=== PATIENT | female | born 1960 | race African-American/Black ===

== ENCOUNTER 2017-04-27 22:30 | Inpatient (IN) | payer MEDICAID, SELFPAY ==
[2017-04-27 22:57] LABS: #Basophils 0.1 thou/uL (0.0-0.2); #Eosinphils 0.2 thou/uL (0.0-0.7); #Lymphocytes 2.6 thou/uL (1.20-3.40); #Neutrophils 8.3 thou/uL (1.40-6.50); %Eosinophils 1.6 % (0.0-10.0); %Lymphocytes 21.1 % (21.0-51.0); %Monocytes 8.4 % (0.0-10.0); %Neutrophils 67.9 % (42.0-75.0); Hemoglobin 11.8 g/dL (12.0-16.0); Mean Corpuscular HGB CONC 31.9 g/dL (32.0-36.0); Mean Corpuscular Hemoglobin 29.3 pg (27.0-31.0); Mean Corpuscular Volume 91.8 fl (81.0-99.0); Mean Platelet Volume 9.2 fL (7.4-10.4); Platelet Count 360 thou/uL (130-400); RBC Distribution Width 12.1 % (11.5-14.5); Red Blood Cell (RBC) Count 4.05 mill/uL (4.20-5.40); White Blood Cell (WBC) Count 12.2 thou/uL (4.8-10.8)
--- NOTE | 2017-04-27 23:04 | RAD ---
PORTABLE AP CHEST X-RAY 04/27/17 HISTORY: Shortness of breath for two days. COMPARISON: None available. FINDINGS: There is limited evaluation of the lung bases due to the underpenetrated technique of the study. Left lung base is mostly obscured due to enlarged cardiac silhouette and underpenetrated technique. Lungs are otherwise clear. The cardiac silhouette does appear mildly enlarged and magnified by projection. Pulmonary vasculature is at the upper limits of normal. Osseous structures are intact. IMPRESSION: Suboptimal evaluation of the left lung base due to enlarged cardiac silhouette and underpenetrated te chnique. Atelectasis, infiltrate or pleural effusion at the left lung base cannot be excluded. POS: [facility]
[2017-04-27 23:17] LABS: ALT (SGPT) 93 U/L (8-55); AST (SGOT) 63 U/L (5-34); Albumin 3.3 g/dL (3.5-5.0); Alkaline Phosphatase 94 U/L (40-150); Anion Gap 17 mmol/L (10-20); BUN (Urea Nitrogen) 37 mg/dL (9.8-20.1); Bilirubin, Total 0.3 mg/dL (0.2-1.2); Calc. Creatinine Clearance 0 mL/min (70-130); Carbon Dioxide 22 mmol/L (22-29); Chloride 99 mmol/L (98-107); Estimated GFR-MDRD 27; Globulin 3.7 g/dL (2.4-3.5); Glucose 431 mg/dL (70-105); Potassium 4.2 mmol/L (3.5-5.1); Sodium 134 mmol/L (136-145)
[2017-04-27 23:21] LABS: CKMB 3.3 ng/mL (0-6.6); Troponin I 0.264 ng/mL (< 0.028)
[2017-04-27] MEDS ORDERED: Nitroglycerin 0.4 MG TAB (25 Tab Bottle) ONE (23:29)
[2017-04-27] MEDS ORDERED: Nitroglycerin 2% Ointment 1 INCH/1 GM Packet ONE (23:29)
[2017-04-27] MEDS ORDERED: Furosemide 40 MG/4 ML VIAL ONE (23:29)
[2017-04-28] MEDS ORDERED: hydrALAZINE 20 MG/ML VIAL ONE (00:24)
[2017-04-28 05:13] VITALS: BMI 50.2
[2017-04-28] MEDS ORDERED: Ondansetron HCl/PF 4 MG/2 ML Vial IVP PRN (05:26)
[2017-04-28] MEDS ORDERED: Ondansetron ODT 4 MG TAB SL PRN (05:26)
[2017-04-28] MEDS ORDERED: Acetaminophen 325 MG TAB PO PRN (05:26)
[2017-04-28] MEDS: Furosemide 40 MG/4 ML VIAL SLOW IVP SCH ×2 (06:48→12:02)
[2017-04-28] MEDS ORDERED: Dextrose 50% Abboject 50 ML SYRINGE IVP PRN (08:14)
[2017-04-28] MEDS ORDERED: Dextrose 5% in Water 1,000 ML IV PRN (08:14)
[2017-04-28] MEDS ORDERED: Losartan 25 MG TAB PO SCH (09:00)
[2017-04-28] MEDS ORDERED: glipiZIDE 10 MG TAB PO SCH (09:00)
--- NOTE | 2017-04-28 09:07 | RAD ---
2 VIEWS CHEST: Date: 04/28/17 COMPARISON: 04/27/17. HISTORY: CHF. FINDINGS: Two views of the chest show an enlarged but stable cardiomediastinal silhouette. There is no evidence of consolidation, mass, or pleural effusion. IMPRESSION: Cardiomegaly. POS: [facility]
[2017-04-28] MEDS: Aspirin 325 MG TAB PO SCH (09:13)
[2017-04-28] MEDS: Enoxaparin Sodium 40 MG/0.4 ML SYRINGE SC SCH (09:13)
[2017-04-28] MEDS: cloNIDine 0.1 MG TAB PO SCH ×3 (09:14→21:00)
[2017-04-28] MEDS: Insulin Detemir 100 UNITS/ML 10 UNITS in Pre-Filled Syringe 1 EACH SC SCH ×2 (09:15→20:59)
[2017-04-28 09:44] LABS: Hemoglobin A1c 12.4 % (4.0-6.0)
--- NOTE | 2017-04-28 10:49 | HP ---
DATE OF ADMISSION: 04/28/2017 HISTORY OF PRESENT ILLNESS: This is a 57-year-old black female with a history of congestive heart fa ilure, morbid obesity, diabetes who presents with chest pain. Patient approximately 1 week ago began developing low grade fever, headache and myalgias and arthralgias. She felt that she had the flu. Since then, she has had increasing shortness of breath. She has been having difficulty even walking short distances. Finally, last night, she became frustrated and presented to the emergency room. Up on evaluation, she was noted to be in congestive heart failure. Over the past year, she was last see n by myself in 06/2016. She lives between [place] and [place]. She is on medicate in [place] an d has been seen a physician there. She admits to a very poor diet. She states [place] has a very unhe althy foods compared to [place]. She did recently quit smoking 1 year ago. She has a 30-year tob acco history. She also states that [place] only has greasy unhealthy foods to eat here. PAST MEDICAL HISTORY: Hypertension, hyperlipidemia, diabetes, congestive heart failure in 2011. PAST SURGICAL HISTORY: Includes x1, cholecystectomy, right ulnar nerve surgery. FAMILY HISTORY: Father with Alzheimer's. Mother with manic depression, diabetes, hypertension. Sib lings with hypertension. Paternal grandfather negative. SOCIAL HISTORY: Patient has a half a pack per day tobacco history x30 years. She is presently apply ing for disability. She is on medicate in [place] and attempting to get on medicate in [place]. Roque lawson is presently unemployed. She has one son. MEDICATIONS: Glipizide 10 mg daily, metoprolol 100 at bedtime, losartan 100 q.a.m., Zoloft 100 daily . ALLERGIES: BACTRIM. REVIEW OF SYSTEMS: As above. PHYSICAL EXAMINATION: VITAL SIGNS: Upon admission, blood pressure was excessively high, temperature 98.1, pulse 81, respir ations 26, O2 sat 98 on 3 liters, blood pressure 174/92. HEENT: Clear. HEART: Regular rate and rhythm. LUNGS: Difficult to auscultate due to morbid obesity. ABDOMEN: Obese, soft, nontender. EXTREMITIES: With no appreciative edema. LABORATORY DATA AND X-RAY FINDINGS: Sodium 134, potassium 4.2, creatinine 2.24, glucose 431, 334. B BOX BENDER 1614. Troponin 0.264. Chest x-ray difficult to visualize due to obesity. EKG shows a sinus tach ycardia. ASSESSMENT: 1. Congestive heart failure exacerbation. 2. Non-ST elevation myocardial infarction. 3. Acute kidney failure on chronic kidney disease stage 4. 4. Diabetes. 5. Hypertension. 6. Hyperlipidemia. 7. Morbid obesity. 8. Tobacco abuse, quit one year ago, 30-year history. 9. Sedentary lifestyle. 10. Poor diet. 11. Noncompliance. PLAN: 1. Echo. 2. Chest x-ray, PA and lateral. 3. Consult Cardiology. 4. Dietary consult. 5. Accu-Chek. 6. Check hemoglobin A1c and TSH. 7. The patient, if she continues in this present lifestyle, her prognosis is very poor. She has a v jennifer poor diet. She is also sedentary. She states she is going down the path as her mother did. We will consult Cardiology. Patient needs a thorough cardiac evaluation. She is noncompliant and early sees her physician. I last saw her nearly 1 year ago. Most likely, she has coronary artery disease , cardiomyopathy, and kidney disease. We will require diuresis. I had a long discussion with the william perry as far as her diet, exercise and lifestyle. We will continue to follow.
[2017-04-28] MEDS: HumaLOG 300 UNITS/3 ML VIAL SC PRN (12:02)
--- NOTE | 2017-04-28 14:16 | ULT ---
RENAL SONOGRAM: HISTORY: Chronic renal insufficiency. FINDINGS: The right kidney is 10.7 cm in length and the left is 11.5 cm. There is mild dilatation of each binh l collecting system. No masses are evident. The urinary bladder is incompletely distended. IMPRESSION: Mild bilateral hydronephrosis, cause and significance are not apparent. The urinary bladder is decom pressed. POS: [facility]
--- NOTE | 2017-04-28 16:13 | CON ---
DATE OF CONSULTATION: 04/28/2017 NEPHROLOGY CONSULTATION REASON FOR CONSULTATION: Chronic kidney disease and elevated creatinine. HISTORY OF PRESENTING ILLNESS: This is a very pleasant 57-year-old female with a history of pre-ecla mpsia, history of proteinuria and history of congestive heart failure who presented to the hospital w ith chest pain. The patient at this time denies any nausea, vomiting or chest pain. The patient has no known proteinuria and has been on an MILENA inhibitor and an ARB. PAST MEDICAL HISTORY: Significant for hypertension, hyperlipidemia, diabetes mellitus, congestive he art failure, history of , cholecystectomy, right ulnar nerve, history of eclampsia or preecl ampsia. FAMILY HISTORY: Negative for ESRD. SOCIOECONOMIC HISTORY: No alcohol or drug use. HOME MEDICATIONS: List reviewed. HOSPITAL MEDICATIONS: Reviewed. ALLERGIES: Reviewed. The patient had a cough to MILENA INHIBITOR. REVIEW OF SYSTEMS: A 15-point review of systems was performed and was negative except for positives noted above. GENERAL: Weakness- HEAD: Headache- NECK: No swelling or lumps. NOSE: No epistaxis or discharge. EYES: No diplopia or pain. RESPIRATORY: Dyspnea- CARDIOVASCULAR: Chest pain- GASTROINTESTINAL: Nausea- /DISTANCE LEARNING COORDINATOR: Hematuria- MUSCULOSKELETAL: No joint pain. NEUROPSYCHIATIC SYSTEMS: No suicidal ideation. No ideation. SKIN: Denies any rash or ulcer. CONSTITUTIONAL: No fever or chills. PHYSICAL EXAMINATION: GENERAL: Patient is awake, alert. VITAL SIGNS: Afebrile, pulse 89, breathing at 16, blood pressure was 172/92. HEAD/NECK: Normocephalic. Atraumatic. EYES: EOMI. No deformity. EARS: Clear. No ulcers. NOSE: Intact. No lesions. MOUTH: Clear. No discharge. THROAT: Clear. No exudate. LUNGS: Clear. No crackles. CARDIAC: S1, S2. No rub. ABDOMEN: Benign. BS+. GENITALIA/RECTUM: Terrell absent. BACK/EXTREMITIES: Edema 0+ Ulcer- NEUROLOGICAL: Alert and motor intact. SKIN: Rash- Bruise- LYMPHATICS: Edema- Ulcer- ASSESSMENT AND PLAN: 1. Hypertension, start amlodipine 2.5 mg daily. 2. Anemia, stable. 3. Medications based on glomerular filtration rate are appropriate. I will follow the patient's cheryl al function closely. I have advised lifestyle modification including weight reduction.
--- NOTE | 2017-04-28 23:01 | CON ---
DATE OF CONSULTATION: 04/28/2017 REASON FOR CONSULTATION: Heart failure. HISTORY OF PRESENT ILLNESS: Ms. Martinez is a very pleasant 57-year-old -Spanish female, who comes to the hospital for shortness of breath. She has been told in the past that she has had conge stive heart failure, she does not know if she has been told that she had a weak heart or not. She co mes in for approximately 2 weeks of worsening shortness of breath with increasing lower extremity kellie ma. She was unable to lay flat on her back and she could only sleep if she would put several pillows on her back and she would have to sit up every now and then to breathe better. She decided to come in because of this and , and Cardiology is being consulted for this. She has taken most of her care up in [place], some of it here in [place], but she recently moved here some years ago and has not been seeing any physicians here in the area except for a primary care doctor. She tells me she q uit smoking a year ago. She had a [id number]-daff history of smoking. PAST MEDICAL HISTORY: 1. Hypertension. 2. Hyperlipidemia. 3. Type 2 diabetes. 4. Heart failure since 2011, unknown which type. PAST SURGICAL HISTORY: 1. x1. 2. Cholecystectomy. 3. Right ulnar nerve surgery. FAMILY HISTORY: Hypertension in family members. SOCIAL HISTORY: Half a pack a day tobacco use for 30 years. No alcohol or drugs. OUTPATIENT MEDICATIONS: Include; 1. Glipizide 10 mg a day. 2. Metoprolol 100 mg at bedtime. 3. Losartan 100 mg q.a.m. 4. Zoloft. ALLERGIES: BACTRIM. REVIEW OF SYSTEMS: A 12-point review of systems was done and is all negative unless stated in the hi story of present illness. PHYSICAL EXAMINATION: VITAL SIGNS: Temperature 97.7, pulse 83, respiratory rate 20, satting 98% on 2 liters, blood pressur e 139/103. GENERAL: Awake, alert, oriented x3, in no distress. HEENT: Normocephalic, atraumatic. NECK: Supple, with JVP up to about 14 cm of water. LUNGS: Have mild crackles at bilateral bases. CARDIOVASCULAR: S1, S2, no S3, S4. There is a soft grade 2/6 systolic murmur in the right upper cortes rnal border. Cannot appreciate PMI secondary to body habitus. ABDOMEN: Soft. Positive bowel sounds. EXTREMITIES: 1+ edema. SKIN: Warm and dry. LABORATORY DATA: Laboratory work was reviewed. White count of 12, hemoglobin 11, hematocrit of 37, platelet count of 260. Chemistry was also reviewed. Hemoglobin A1c was 12, BUN 37, creatinine 2.24, glucose was 431, troponin was indeterminate at 0.26. BNP was 1614, albumin of 3.3. ASSESSMENT: 1. Acute decompensated heart failure. Unknown if this is systolic or diastolic. 2. Morbid obesity. 3. Tobacco abuse, quit about a year ago. 4. Possible diagnosis of chronic obstructive pulmonary disease. She has never had PFTs so. 5. Acute kidney injury, most likely on chronic kidney disease. 6. Poorly controlled diabetes. PLAN: 1. Continue IV diuresis. She is already feeling better after Lasix has been given. We will get an echocardiogram to assess LV function and valvular structures and have a better idea of what type of h eart failure she may have. 2. Recommend request records from [place] to see what has been done, so we do not have to repeat several of the things that probably already have been done for this. 3. Further recommendations per results of echocardiogram. Thank you for letting us to participate in the care of your patient. We will follow.
[2017-04-29] MEDS: Furosemide 40 MG/4 ML VIAL SLOW IVP SCH ×2 (05:36→14:40)
[2017-04-29] MEDS: Aspirin 325 MG TAB PO SCH (08:15)
[2017-04-29] MEDS: cloNIDine 0.1 MG TAB PO SCH ×3 (08:15→20:31)
[2017-04-29] MEDS: Enoxaparin Sodium 40 MG/0.4 ML SYRINGE SC SCH (08:16)
[2017-04-29] MEDS: Insulin Detemir 100 UNITS/ML 10 UNITS in Pre-Filled Syringe 1 EACH SC SCH (08:18)
[2017-04-29] MEDS ORDERED: Amlodipine 5 MG TAB PO SCH (09:00)
[2017-04-29 10:04] LABS: Anion Gap 13 mmol/L (10-20); BUN (Urea Nitrogen) 45 mg/dL (9.8-20.1); Calc. Creatinine Clearance 65 mL/min (70-130); Calcium 8.6 mg/dL (7.8-10.44); Carbon Dioxide 27 mmol/L (22-29); Chloride 100 mmol/L (98-107); Estimated GFR-MDRD 29; Glucose 273 mg/dL (70-105); Potassium 4.1 mmol/L (3.5-5.1); Sodium 136 mmol/L (136-145)
[2017-04-29] MEDS: HumaLOG 300 UNITS/3 ML VIAL SC PRN (11:51)
[2017-04-29 12:01] LABS: Creatinine, Urine 89.45 mg/dL (47-110)
--- NOTE | 2017-04-29 15:10 | CT ---
CT OF THE ABDOMEN AND PELVIS WITHOUT CONTRAST: COMPARISON: None. History Left lower quadrant abdominal pain and nausea. TECHNIQUE: Multiple contiguous axial images were obtained in a CT of the abdomen and pelvis without contrast. C oronal reformats were performed. FINDINGS: The patient is status post cholecystectomy. There is a calcification in the superior pole of the lef t kidney which is nonobstructing measuring approximately 3 mm in size. No calcifications are seen al danni the course of the ureters or the urinary bladder. The liver, right kidney, adrenal glands, spleen, and pancreas are unremarkable, although evaluation i s limited on this noncontrast examination. The large and small bowel are unremarkable. The reproductive organs are unremarkable. No abdominal or pelvic lymphadenopathy are seen. Degenerative changes are seen in the spine. The visualized inferior thorax and abdominal wall soft t issues are unremarkable. IMPRESSION: 1. No evidence of acute intrabdominal/pelvic abnormality. 2. Nonobstructing left renal calcification. POS: [facility]
--- NOTE | 2017-04-29 17:09 | PRG ---
DATE OF SERVICE: 04/29/2017 SUBJECTIVE: This is a 57-year-old female being seen for acute kidney injury. The patient denies any nausea, vomiting or chest pain. OBJECTIVE: GENERAL: The patient is awake and alert. VITAL SIGNS: Afebrile, pulse 74, breathing at 16 and blood pressure 125/69. HEAD/NECK: Normocephalic. Atraumatic. EYES: EOMI. No deformity. EARS: Clear. No ulcers. NOSE: Intact. No lesions. MOUTH: Clear. No discharge. THROAT: Clear. No exudate. LUNGS: Clear. No crackles. CARDIAC: S1, S2. No rub. ABDOMEN: Benign. BS+. GENITALIA/RECTUM: Terrell absent. BACK/EXTREMITIES: Edema 0+. Ulcer-. NEUROLOGICAL: Alert and motor intact. SKIN: Rash-. Bruise-. LYMPHATICS: Edema-. Ulcer-. LABORATORY DATA: Showed creatinine is 2.1, GFR is 29. ASSESSMENT AND RECOMMENDATIONS: 1. Acute kidney injury with chronic kidney disease, most likely because of diabetic nephropathy. 2. Proteinuria. 3. Anemia, stable. 4. Medications based on glomerular filtration rate are appropriate. 5. Hypertension. We will quantitate proteinuria and consider restarting ARB at a low dose. 6. Bilateral hydronephrosis. I will consult Urology. Once again, thank you for allowing me to participate in the care of this patient. E.J. NOBLE HOSPITALCarolyne
--- NOTE | 2017-04-29 19:46 | PDOC.CTH ---
Cardiology Progress Note - Subjective She has diuresed well but still requiring O2 supplementation. - Objective Vital Signs Temp Pulse Pulse Pulse Resp BP BP 04/29/17 16:30 62 20 04/29/17 15:38 98.3 F 67 18 04/29/17 14:40 156/100 H 04/29/17 11:36 97.8 F 70 18 04/29/17 11:26 70 74 154/91 H 04/29/17 08:18 74 125/89 04/29/17 08:15 125/89 04/29/17 08:00 97.7 F 74 20 04/29/17 07:45 97.7 F 74 18 BP BP BP Pulse Ox Pulse Ox Pulse Ox 04/29/17 16:30 129/94 H 96 04/29/17 15:38 151/100 H 97 04/29/17 14:40 04/29/17 11:36 156/100 H 97 04/29/17 11:26 174/101 H 100 98 04/29/17 08:18 04/29/17 08:15 04/29/17 08:00 100 04/29/17 07:45 125/89 100 Weight 312 lb 6.4 oz 04/28/17 04/29/17 04/30/17 06:59 06:59 06:59 Output Total 500 1000 Balance -500 -1000 - Physical Examination General/Neuro: alert & oriented x3, NAD Neck: no JVD present Lungs: unlabored respirations, other: (Mild crackles at bases. ) Heart: RRR Abdomen: NT/ND Extremities: + edema B (1+) - Telemetry Telemetry Rhythm: NSR - Labs Result Diagrams: 04/27/17 22:47 04/29/17 05:01 Troponin/CKMB CK-MB (CK-2) 3.3 ng/mL (0-6.6) 04/27/17 22:47 Troponin I 0.264 ng/mL (< 0.028) H 04/27/17 22:47 - Assessment/Plan 1. Acute systolic heart failure 2. Moderately reduced LV function EF at 40-45% 3. HTN 4. Morbid obesity 5. CKD stage 4 PLAN: - Continue IV diuresis for now probably 2 more days. - Once closer to euvolemic she can be discharged home. - Request records from [place] as full work up of all this has been done already.
[2017-04-29] MEDS ORDERED: Insulin Detemir 100 UNITS/ML 20 UNITS in Pre-Filled Syringe SC SCH (21:00)
--- NOTE | 2017-04-29 21:11 | CON ---
DATE OF CONSULTATION: 04/29/2017 CONSULTATION REQUESTED FOR: Hydronephrosis. HISTORY OF PRESENT ILLNESS: The patient is a 57-year-old female who is morbidly obese and was admitted for CHF exacerbation after admittedly unhealthy lifestyle. An ultrasound was performed given her renal insufficiency and there was concern for hydronephrosis and I was consulted. Normally, the patient has frequency every 30 minutes to 2 hours and significant nocturia which she reports almost every 30 minutes. She has some leakage when she laughs, coughs and sneezes and wears a pad just in case she goes out or travels but normally does not have significant leakage enough to wear a pad on a daily basis. She has no gross hematuria, or prior UTIs. PAST MEDICAL HISTORY: Significant for hypertension, high cholesterol, diabetes , CHF. PAST SURGICAL HISTORY: Includes cholecystectomy and right ulnar nerve transposition. PAST BREAKFAST HOSTESS HISTORY: One . She did have eclampsia during her . MEDICATIONS: Glipizide, metoprolol, losartan, and Zoloft. REVIEW OF SYSTEMS: Reveals some shortness of breath which is greatly improved. No chest pain. No nausea or vomiting, some chills, but no fever, questionable constipation, no diarrhea. No nausea or vomiting. She is starting to exercise or trying to be more healthy with that, but has not had a significant amount of energy in the last month so it is not. She does have a history of anemia and is taking iron, but this seems to have improved. Mammogram was normal as well as a Pap smear last year. Colonoscopy from last year was clear, although she had prior polyps now for 3 years. SOCIAL HISTORY: She has a [id number] history and quit last year. She does not drink or use other drugs. FAMILY HISTORY: Significant for mom having depression and diabetes, but she is otherwise alive, and dad has Alzheimer's and is living as well. No cancers. PHYSICAL EXAMINATION: VITAL SIGNS: She is alert and oriented in the bed. Appropriate and pleasant. T-max 97.8, blood pressure 156/100, 97% on room air saturating and 18 respiratory rate with a heart rate of 70. Her urine output is listed as 12. GENERAL: She is morbidly obese. It is difficult to assess for JVD, but she has no scleral icterus. CARDIOVASCULAR: Heart sounds and lung sounds are difficult, but relatively regular without any obvious murmurs or gallops or rubs. LUNGS: Clear to auscultation as best I can tell. ABDOMEN: Soft and nontender. GENITOURINARY: No CVA tenderness. EXTREMITIES: No significant lower extremity edema. LABORATORY DATA: Reveal a normal CBC, BUN and creatinine of 45 and 2.12. It had previously been 2.24, it was 1.6 back in 08/2015. Urinalysis is not obtained yet. Renal ultrasound from 04/28/2017 revealed mild bilateral hydro left. ARY (04/29/17) left is greater than right renal pelvic dilation tjhat could be related to extrarenal pelvise. Hydronephrosis is questionable so me, so I ordered a CT scan. After examining and speaking with the patient, she just recently returned from the CT scan, so I was able to review this and then return to her and give the report. CT (04/29/17) no hydro/masses, 6 x 2 mm left upper pole stone which completely incidental without any sort of hydronephrosis on the left or the right nor hydroureter or other concerning stone. She had normal bladder with phleboliths noted. I cannot tell about the stone on battery recharger image. ASSESSMENT AND PLAN: we have a 57-year-old female with no concern for hydronephrosis and incidental kidney stone. We had a long discussion including Kegel and stone prevention and hydration and dietary changes. Given the incidental stone, she should follow up in the outpatient setting to further discuss prevention, but there is nothing to be done acutely at this time from a standpoint. Thank you for letting me take part in her care. JULIA
[2017-04-30 05:49] LABS: Anion Gap 13 mmol/L (10-20); BUN (Urea Nitrogen) 49 mg/dL (9.8-20.1); Calc. Creatinine Clearance 58 mL/min (70-130); Calcium 8.9 mg/dL (7.8-10.44); Carbon Dioxide 29 mmol/L (22-29); Chloride 100 mmol/L (98-107); Estimated GFR-MDRD 26; Glucose 306 mg/dL (70-105); Potassium 3.9 mmol/L (3.5-5.1); Sodium 138 mmol/L (136-145)
[2017-04-30] MEDS: Furosemide 40 MG/4 ML VIAL SLOW IVP SCH ×2 (06:28→13:15)
[2017-04-30] MEDS: cloNIDine 0.1 MG TAB PO SCH ×3 (08:13→20:29)
[2017-04-30] MEDS: Amlodipine 5 MG TAB PO SCH (08:14)
[2017-04-30] MEDS: Aspirin 325 MG TAB PO SCH (08:14)
[2017-04-30] MEDS: Enoxaparin Sodium 40 MG/0.4 ML SYRINGE SC SCH (08:15)
[2017-04-30] MEDS: Polyethylene Glycol 3350 17 GM Packet PO SCH (08:15)
[2017-04-30 08:31] LABS: Bilirubin Negative (Negative); Blood, Urine Trace (Negative); Clarity CLOUDY (Clear); Glucose, Urine (Dipstick) 100 mg/dL (Negative); Leukocyte Small (Negative); Nitrite Positive (Negative); Protein, Urine (Dipstick) 300 mg/dL (Neg-Trace); Specific Gravity, Urine 1.016 (1.002-1.036); Urobilinogen 0.2 mg/dL (0.2-1.0)
[2017-04-30 08:32] LABS: Bacteria/HPF 4+ HPF (None Seen); Hyaline Casts/LPF 0-3 HYALINE CAST LPF (0-3 Hyaline); RBC/HPF 0-3 HPF (0-3); Squamous Epithelial 0-3 HPF (0-3); WBC/HPF 21-50 HPF (0-3)
[2017-04-30] MEDS ORDERED: Insulin Detemir 100 UNITS/ML 10 UNITS in Pre-Filled Syringe SC SCH (09:00)
[2017-04-30] MEDS: HumaLOG 300 UNITS/3 ML VIAL SC PRN ×2 (11:35→17:03)
[2017-04-30 13:10] LABS: Anion Gap 16 mmol/L (10-20); BUN (Urea Nitrogen) 49 mg/dL (9.8-20.1); Calc. Creatinine Clearance 56 mL/min (70-130); Calcium 8.7 mg/dL (7.8-10.44); Carbon Dioxide 26 mmol/L (22-29); Chloride 98 mmol/L (98-107); Estimated GFR-MDRD 24; Glucose 333 mg/dL (70-105); Potassium 3.9 mmol/L (3.5-5.1); Sodium 136 mmol/L (136-145)
--- NOTE | 2017-04-30 15:25 | PRG ---
DATE OF SERVICE: 04/30/2017 SUBJECTIVE: This is a 57-year-old female being seen for acute kidney injury. The patient denies any nausea, vomiting or chest pain. PHYSICAL EXAMINATION: GENERAL: Patient is awake, alert. VITAL SIGNS: Afebrile, pulse 68, breathing at 16, blood pressure 151/92. HEAD/NECK: Normocephalic. Atraumatic. EYES: EOMI. No deformity. EARS: Clear. No ulcers. NOSE: Intact. No lesions. MOUTH: Clear. No discharge. THROAT: Clear. No exudate. LUNGS: Clear. No crackles. CARDIAC: S1, S2. No rub. ABDOMEN: Benign. BS+. GENITALIA/RECTUM: Terrell absent. BACK/EXTREMITIES: Edema 0+ Ulcer- NEUROLOGICAL: Alert and motor intact. SKIN: Rash- Bruise- LYMPHATICS: Edema- Ulcer- LABORATORY DATA: Show creatinine 2.3. Urine showed 3 grams ASSESSMENT AND RECOMMENDATIONS: 1. Chronic kidney disease stage 4 due to hypertension and diabetic nephropathy. Serum protein elect rophoresis and urine protein electrophoresis are pending. No indication for dialysis. 2. Hypertension, stable. 3. Anemia, stable. 4. Medications based on glomerular filtration rate are appropriate.
--- NOTE | 2017-04-30 19:09 | PDOC.CTH ---
Cardiology Progress Note - Subjective She is doing better every day. Still requiring O2 supplementation. - Objective Vital Signs Temp Pulse Pulse Pulse Resp BP BP 04/30/17 17:27 94 04/30/17 15:44 98.1 F 106 H 18 04/30/17 14:19 151/95 H 04/30/17 11:56 97.4 F L 66 18 04/30/17 10:50 103 H 50 L 168/101 H 04/30/17 09:24 97.8 F 68 18 04/30/17 08:14 68 151/92 H 04/30/17 08:13 151/92 H 04/30/17 07:48 97.8 F 68 18 BP BP Pulse Ox Pulse Ox Pulse Ox 04/30/17 17:27 04/30/17 15:44 130/91 H 95 04/30/17 14:19 04/30/17 11:56 142/97 H 98 04/30/17 10:50 147/111 H 99 98 04/30/17 09:24 97 04/30/17 08:14 04/30/17 08:13 04/30/17 07:48 151/92 H 97 Weight 316 lb 8 oz 04/29/17 04/30/17 05/01/17 06:59 06:59 06:59 Intake Total 740 Output Total 1000 750 Balance -1000 -10 - Physical Examination General/Neuro: alert & oriented x3, NAD Neck: no JVD present Lungs: unlabored respirations Heart: RRR Abdomen: NT/ND Extremities: + edema B (trace) - Telemetry Telemetry Rhythm: NSR - Labs Result Diagrams: 04/27/17 22:47 04/30/17 12:38 Troponin/CKMB CK-MB (CK-2) 3.3 ng/mL (0-6.6) 04/27/17 22:47 Troponin I 0.264 ng/mL (< 0.028) H 04/27/17 22:47 - Assessment/Plan 1. Acute systolic heart failure 2. Moderately reduced LV function EF at 40-45% 3. HTN 4. Morbid obesity 5. CKD stage 4 PLAN: - Continue IV diuresis today. May switch to PO tomorrow. - Once closer to euvolemic she can be discharged home.
[2017-04-30] MEDS: Cipro 250 MG TAB PO SCH (20:31)
[2017-04-30] MEDS ORDERED: Insulin Detemir 100 UNITS/ML 25 UNITS in Pre-Filled Syringe SC SCH (21:00)
[2017-05-01 05:15] LABS: Anion Gap 16 mmol/L (10-20); BUN (Urea Nitrogen) 52 mg/dL (9.8-20.1); Calc. Creatinine Clearance 59 mL/min (70-130); Calcium 8.7 mg/dL (7.8-10.44); Carbon Dioxide 25 mmol/L (22-29); Chloride 101 mmol/L (98-107); Estimated GFR-MDRD 26; Glucose 272 mg/dL (70-105); Potassium 3.9 mmol/L (3.5-5.1); Sodium 138 mmol/L (136-145)
[2017-05-01] MEDS: Cipro 250 MG TAB PO SCH (05:22)
[2017-05-01] MEDS: Furosemide 40 MG/4 ML VIAL SLOW IVP SCH ×2 (05:22→14:34)
[2017-05-01] MEDS: HumaLOG 300 UNITS/3 ML VIAL SC PRN ×2 (05:35→11:02)
--- NOTE | 2017-05-01 07:47 | PRG ---
DATE OF SERVICE: 05/01/2017 SUBJECTIVE: The patient is breathing easier, but still requires oxygen therapy. No complaints of ch est pain or shortness of breath. OBJECTIVE: VITAL SIGNS: Temperature 97.4, pulse 65, respirations 18, pulse ox 97 on 1 liter, blood pressure 162 /92. HEART: Regular rate and rhythm. LUNGS: Clear. ABDOMEN: Soft. EXTREMITIES: With no edema. LABORATORY: Urinary tract infection, Escherichia coli resistant to Cipro. Creatinine 2.3, BUN 52, G FR 26, blood sugar 288, 272, 308. BNP 1569. ASSESSMENT: 1. Acute on chronic systolic heart failure. 2. Acute kidney injury on chronic kidney disease stage 4. 3. Diabetes. 4. Hypertension. 5. Hyperlipidemia. 6. Morbid obesity. 7. Tobacco history, 30-year history, quit one year ago. 8. Sedentary lifestyle 9. Poor diet. 10. Noncompliance. PLAN: 1. Continue to follow electrolytes. 2. Change Cipro to Cephalexin. 3. Increase Levemir to 30 b.i.d. 4. Consider adding hydralazine to the antihypertensives if okay with Cardiology. 5. Trying to explain the patient's medical issues. It is difficult for her to comprehend the signif icance of her poor diet, sedentary lifestyle, medication compliance and importance of following up at the office. The patient's judgment is impaired. She states that her doctors in [place] just sim ply make it difficult for her to be seen. However, she for no reason stopped all her medications, es pecially her Lasix because she thought it was harming her kidneys. However, her heart obviously deco mpensates. We will continue to follow and hopefully help her to understand what needs to be done.
[2017-05-01] MEDS: Aspirin 325 MG TAB PO SCH (08:52)
[2017-05-01] MEDS: Amlodipine 5 MG TAB PO SCH (08:52)
[2017-05-01] MEDS: ALPRAZolam 0.5 MG TAB PO PRN (08:53)
[2017-05-01] MEDS: cloNIDine 0.1 MG TAB PO SCH ×3 (08:53→21:32)
[2017-05-01] MEDS: Enoxaparin Sodium 40 MG/0.4 ML SYRINGE SC SCH (08:54)
[2017-05-01] MEDS: Polyethylene Glycol 3350 17 GM Packet PO SCH (08:55)
[2017-05-01] MEDS: Insulin Detemir 100 UNITS/ML 30 UNITS in Pre-Filled Syringe 1 EACH SC SCH ×2 (09:08→21:41)
[2017-05-01] MEDS: cefTRIAXone\\ROCEPHIN 2 GM in Sodium Chloride 0.9% 100 ML IVPB SCH (11:00)
[2017-05-01] MEDS ORDERED: Cephalexin 250 MG CAP PO SCH (14:00)
[2017-05-01 15:19] LABS: A/G Ratio 0.8 (0.7-1.7); Albumin 2.7 g/dL (2.9-4.4); Alpha 1 0.3 g/dL (0.0-0.4); Alpha 2 1.1 g/dL (0.4-1.0); Beta 1.2 g/dL (0.7-1.3); Gamma 0.9 g/dL (0.4-1.8); Globulin, Total 3.5 g/dL (2.2-3.9); M-Spike Not Observed g/dL (Not Observed)
--- NOTE | 2017-05-01 17:03 | PDOC.CTH ---
Cardiology Progress Note - Subjective She continues to require oxygen. She has diuressed but IO are difficult to quantify. She is on 2L NC at 96%, I took her off and on RA she goes down to 93% but when she stood up to go to the bathroom she was much more short winded and her O2 sats decreased to 86%. - Objective Vital Signs Temp Pulse Resp BP BP Pulse Ox 05/01/17 15:45 97.5 F L 60 18 158/107 H 97 05/01/17 14:35 167/103 H 05/01/17 12:00 98.2 F 62 20 174/112 H 95 05/01/17 08:53 169/104 H 05/01/17 08:52 60 169/104 H 05/01/17 08:00 97.8 F 60 18 169/104 H 94 L 05/01/17 07:40 97.4 F L 65 18 97 05/01/17 05:11 97.4 F L 65 18 162/92 H 97 Weight 319 lb 04/30/17 05/01/17 05/02/17 06:59 06:59 06:59 Intake Total 740 Output Total 750 Balance -10 - Physical Examination General/Neuro: alert & oriented x3, NAD Neck: no JVD present Lungs: unlabored respirations, other: (reduced breath sounds bilat. ) Heart: RRR Abdomen: NT/ND Extremities: other: (no edema.) - Telemetry Telemetry Rhythm: NSR - Labs Result Diagrams: 04/27/17 22:47 05/01/17 04:42 Troponin/CKMB CK-MB (CK-2) 3.3 ng/mL (0-6.6) 04/27/17 22:47 Troponin I 0.264 ng/mL (< 0.028) H 04/27/17 22:47 - Assessment/Plan 1. Acute systolic heart failure 2. Moderately reduced LV function EF at 40-45% 3. HTN 4. Morbid obesity 5. CKD stage 4 6. Chronic hypoxic respiratory insufficiency. I suspect a lot of her issues are from her weight and her severe СВЕТЛАНА. PLAN: - Will switch to PO lasix. - She seems euvolemic today. - She will need home O2 most likely. - BP still not well controlled. Will add hydralazine 25 mg TID and will increase amlodipine to 10 mg daily. - No ACEI or ARB due to renal function.
[2017-05-01] MEDS ORDERED: Furosemide 100 MG/10 ML VIAL SLOW IVP SCH (17:15)
--- NOTE | 2017-05-01 18:45 | PRG ---
DATE OF SERVICE: 05/01/2017 SUBJECTIVE: Patient was seen and examined at bedside and overnight events noted. Patient denies any shortness of breath or chest pain or palpitation. No history of nausea or vomiting or diarrhea or f ever or chills or cramps. OBJECTIVE: GENERAL: This is an morbidly obese female in no apparent distress. VITAL SIGNS: Temperature 97.5, pulse 60, respiratory rate 18 and blood pressure 158/107(). HEENT: Atraumatic and normocephalic. Oral mucosa is moist. NECK: Supple. CARDIOVASCULAR: S1 and S2 heard. Rate and rhythm regular. RESPIRATORY: Clear to auscultation. GASTROINTESTINAL: Abdomen is soft. MUSCULOSKELETAL: No tenderness. No edema. DERMATOLOGIC: No skin rash. NEUROLOGIC: Alert, awake and oriented x3. No focal neurologic deficits. Moving all the extremities . PSYCHIATRIC: Mood and affect normal. LABORATORY DATA: Potassium is 3.9, BUN is 52 and creatinine is 2.3. ASSESSMENT AND PLAN: 1. Acute kidney injury on chronic kidney disease stage 4. Renal function is stable. 2. Anemia proteinuria. 3. Hypertension. Overall, renal function is stable. We will follow.
[2017-05-01] MEDS: hydrALAZINE 25 MG TAB PO SCH (21:32)
[2017-05-02 05:23] LABS: Anion Gap 16 mmol/L (10-20); BUN (Urea Nitrogen) 47 mg/dL (9.8-20.1); Calc. Creatinine Clearance 68 mL/min (70-130); Calcium 8.9 mg/dL (7.8-10.44); Carbon Dioxide 27 mmol/L (22-29); Chloride 100 mmol/L (98-107); Estimated GFR-MDRD 30; Glucose 130 mg/dL (70-105); Potassium 3.5 mmol/L (3.5-5.1); Sodium 139 mmol/L (136-145)
--- NOTE | 2017-05-02 07:50 | PRG ---
DATE OF SERVICE: 05/02/2017 SUBJECTIVE: The patient is feeling much better today. However, I feel the patient is drinking exces sive water. She states she drinks only about 2 containers of water a day. However, she continues to gain weight. OBJECTIVE: VITAL SIGNS: Temperature 97.6, pulse 83, respirations 24, pulse ox 95 on 1 liter, blood pressure 151 /81. HEART: Regular rate and rhythm. LUNGS: Clear. ABDOMEN: Soft. LABORATORY: Sodium 139, potassium 3.5, creatinine 2.07, blood sugar 130, 125. BNP 1719. ASSESSMENT: 1. Acute on chronic systolic heart failure. 2. Acute kidney injury on chronic kidney disease stage 4. 3. Diabetes. 4. Hypertension. 5. Hyperlipidemia. 6. Morbid obesity. 7. Tobacco history, 30-year history, quit 1 year ago. 8. Sedentary lifestyle. 9. Poor diet. 10. Noncompliance. PLAN: 1. Continue to follow electrolytes. 2. May have to decrease insulin if blood sugars drop further. 3. I feel patient is drinking excessive water. Will fluid restrict to 1000 mL per day. The patient continues to gain weight. I think if she diureses further, I think her blood pressure will come lidia n further. Her kidney function has improved dramatically and this is most likely due to excessive wa ter intake. 4. We will continue to follow. 5. We will recheck CBC, BMP, and chest x-ray in the a.m.
[2017-05-02] MEDS: Enoxaparin Sodium 40 MG/0.4 ML SYRINGE SC SCH (09:12)
[2017-05-02] MEDS: Aspirin 325 MG TAB PO SCH (09:12)
[2017-05-02] MEDS: cloNIDine 0.1 MG TAB PO SCH ×3 (09:12→21:55)
[2017-05-02] MEDS: Furosemide 40 MG TAB PO SCH ×2 (09:12→14:24)
[2017-05-02] MEDS: hydrALAZINE 25 MG TAB PO SCH ×3 (09:13→21:56)
[2017-05-02] MEDS: Polyethylene Glycol 3350 17 GM Packet PO SCH (09:13)
[2017-05-02] MEDS: Insulin Detemir 100 UNITS/ML 30 UNITS in Pre-Filled Syringe 1 EACH SC SCH ×2 (09:13→22:01)
[2017-05-02] MEDS: Amlodipine 10 MG TAB PO SCH (09:13)
--- NOTE | 2017-05-02 09:51 | RAD ---
CHEST TWO VIEWS: Date: 05-02-17 Comparison: 04-28-17 History: Congestive heart failure. FINDINGS: Heart is enlarged, a stable finding. No pneumothorax or pleural fluid. No lobar consolidation or alve olar edema. Clips in the upper abdomen suggest prior cholecystectomy. IMPRESSION: Enlarged cardiac silhouette with no focal consolidation or alveolar edema. POS: [facility]
[2017-05-02] MEDS: cefTRIAXone\\ROCEPHIN 2 GM in Sodium Chloride 0.9% 100 ML IVPB SCH (11:39)
[2017-05-02] MEDS: HumaLOG 300 UNITS/3 ML VIAL SC PRN (11:40)
--- NOTE | 2017-05-02 20:27 | PRG ---
DATE OF SERVICE: 05/02/2017 SUBJECTIVE: Patient was seen and examined at bedside and overnight events noted. Patient denies any shortness of breath or chest pain or palpitation. No history of nausea or vomitin g or diarrhea or fever or chills or cramps. OBJECTIVE: GENERAL: Obese female, in no apparent distress. VITAL SIGNS: Temperature 98.2, pulse 58, respiratory rate 20, blood pressure 137/67. HEENT: Atraumatic, normocephalic. Oral mucosa is moist NECK: Supple. CARDIOVASCULAR: S1 and S2 heard. Rate and rhythm regular. RESPIRATORY: Clear to auscultation. GASTROINTESTINAL: Abdomen is soft. MUSCULOSKELETAL: No tenderness. No edema. DERMATOLOGIC: No skin rash. NEUROLOGIC: Alert and awake and oriented X3, No focal neurologic deficits. Moving all the extremitie s. PSYCHIATRIC: Mood and affect normal. LABORATORY DATA: Potassium is 3.5, BUN is 47, creatinine is 2.07. ASSESSMENT AND PLAN: 1. Acute kidney injury on chronic kidney disease stage 4, stable. 2. Anemia. 3. Proteinuria. 4. Hypertension. 5. Obesity. Renal function is stable. We will follow.
[2017-05-03] MEDS: ALPRAZolam 0.5 MG TAB PO PRN ×2 (04:02→21:53)
[2017-05-03 05:57] LABS: #Basophils 0.1 thou/uL (0.0-0.2); #Eosinphils 0.2 thou/uL (0.0-0.7); #Lymphocytes 2.1 thou/uL (1.20-3.40); #Monocytes 0.9 thou/uL (0.11-0.59); #Neutrophils 5.3 thou/uL (1.40-6.50); %Basophils 0.7 % (0.0-1.0); %Eosinophils 2.4 % (0.0-10.0); %Lymphocytes 24.2 % (21.0-51.0); %Monocytes 10.2 % (0.0-10.0); %Neutrophils 62.5 % (42.0-75.0); Mean Corpuscular HGB CONC 31.2 g/dL (32.0-36.0); Mean Corpuscular Hemoglobin 28.9 pg (27.0-31.0); Mean Corpuscular Volume 92.5 fl (81.0-99.0); Mean Platelet Volume 9.1 fL (7.4-10.4); Platelet Count 341 thou/uL (130-400); RBC Distribution Width 12.6 % (11.5-14.5); Red Blood Cell (RBC) Count 3.82 mill/uL (4.20-5.40); White Blood Cell (WBC) Count 8.5 thou/uL (4.8-10.8)
--- NOTE | 2017-05-03 06:51 | PDOC.CTH ---
Cardiology Progress Note - Subjective Her breathing is unchanged. She is still c/o her chronic SOB. I/O still not well quantified. - Objective Vital Signs Temp Pulse Resp BP BP Pulse Ox 05/03/17 03:53 97.7 F 58 L 20 165/105 H 98 05/02/17 23:47 97.8 F 49 L 20 141/72 H 97 05/02/17 21:56 56 L 141/79 H 05/02/17 21:55 141/79 H 05/02/17 20:18 97.8 F 49 L 20 95 05/02/17 19:33 97.7 F 56 L 20 141/79 H 95 Weight 311 lb 05/01/17 05/02/17 05/03/17 06:59 06:59 06:59 Intake Total 740 730 Output Total 750 Balance -10 730 - Physical Examination General/Neuro: alert & oriented x3, NAD Neck: no JVD present Lungs: CTA, unlabored respirations Heart: RRR Abdomen: NT/ND - Telemetry Telemetry Rhythm: NSR - Labs Result Diagrams: 05/03/17 05:28 05/02/17 04:34 Troponin/CKMB CK-MB (CK-2) 3.3 ng/mL (0-6.6) 04/27/17 22:47 Troponin I 0.264 ng/mL (< 0.028) H 04/27/17 22:47 - Assessment/Plan 1. Acute systolic heart failure, improved. 2. Moderately reduced LV function EF at 40-45% 3. HTN 4. Morbid obesity 5. CKD stage 4 6. Chronic hypoxic respiratory insufficiency. I suspect a lot of her issues are from her weight and her severe СВЕТЛАНА. PLAN: - Continue PO Lasix. - Agree with fluid restriction. - BP still not well controlled. Will increase hydralazine to 50 mg TID. - No ACEI or ARB due to renal function. - Continue BB. - Will give one dose IV lasix today on top of PO dosing. - She should be ready to go home soon. She will need home O2 from her chronic respiratory insufficiency and severe СВЕТЛАНА. - Will need outpatient sleep study. - Home in the next 24 to 48 hrs.
[2017-05-03] MEDS ORDERED: Furosemide 40 MG TAB PO SCH (06:58)
[2017-05-03] MEDS ORDERED: Furosemide 40 MG/4 ML VIAL SLOW IVP SCH (07:00)
--- NOTE | 2017-05-03 07:10 | PRG ---
DATE OF SERVICE: 05/03/2017 at 7:00 a.m. SUBJECTIVE: The patient is feeling much better this morning. She is breathing easier. Her oxygen l evel is down to 0.5 liters per minute. OBJECTIVE: VITAL SIGNS: Blood pressure 141/72, 155/105. HEART: Regular rate and rhythm. LUNGS: Clear. ABDOMEN: Soft. EXTREMITIES: No edema. Weight is down 7 pounds from yesterday, possibly due to fluid restriction. LABORATORY: Labs are pending. Blood sugar 146 and 120. White count 8.5, H&H of 11 and 35. BNP pen ding. ASSESSMENT: 1. Acute on chronic systolic heart failure. 2. Acute kidney injury on chronic kidney disease stage 4. 3. Diabetes. 4. Hypertension. 5. Hyperlipidemia. 6. Morbid obesity. 7. Tobacco history, 30-year history, quit one year ago. 8. Sedentary lifestyle 9. Poor diet. 10. Noncompliance. PLAN: 1. Check electrolytes. 2. If the patient loses additional weight possibly could be off of oxygen by tomorrow. 3. Patient very close to discharge. Hopefully by tomorrow. Continue fluid restriction at 1000 mL p er day.
[2017-05-03] MEDS: hydrALAZINE 25 MG TAB PO SCH ×3 (09:13→21:52)
[2017-05-03] MEDS: Aspirin 325 MG TAB PO SCH (09:14)
[2017-05-03] MEDS: cloNIDine 0.1 MG TAB PO SCH ×3 (09:14→21:51)
[2017-05-03] MEDS: Amlodipine 10 MG TAB PO SCH (09:14)
[2017-05-03] MEDS: Furosemide 40 MG TAB PO SCH ×2 (09:14→15:15)
[2017-05-03] MEDS: Enoxaparin Sodium 40 MG/0.4 ML SYRINGE SC SCH (09:14)
[2017-05-03] MEDS: cefTRIAXone\\ROCEPHIN 2 GM in Sodium Chloride 0.9% 100 ML IVPB SCH (09:17)
[2017-05-03] MEDS: Insulin Detemir 100 UNITS/ML 30 UNITS in Pre-Filled Syringe 1 EACH SC SCH ×2 (09:17→21:54)
[2017-05-03] MEDS: Polyethylene Glycol 3350 17 GM Packet PO SCH (09:19)
--- NOTE | 2017-05-03 11:51 | PRG ---
DATE OF SERVICE: 05/03/2017 SUBJECTIVE: Patient was seen and examined at bedside and overnight events noted. Patient denies any shortness of breath or chest pain or palpitation. No history of nausea or vomitin g or diarrhea or fever or chills or cramps. OBJECTIVE: GENERAL: This is a morbidly obese female, in no apparent distress. VITAL SIGNS: Temperature 98.3, pulse 61, respiratory rate 20, blood pressure 169/96. HEENT: Atraumatic, normocephalic. NECK: Supple. CARDIOVASCULAR: S1 and S2 heard. Rate and rhythm regular. RESPIRATORY: Clear to auscultation. GASTROINTESTINAL: Abdomen is soft. MUSCULOSKELETAL: 1+ edema. DERMATOLOGIC: No skin rash. NEUROLOGIC: Alert and awake and oriented X3, No focal neurologic deficits. Moving all the extremitie s. PSYCHIATRIC: Mood and affect normal. LABORATORY DATA: No new labs done. ASSESSMENT AND PLAN: 1. Acute kidney injury on chronic kidney disease. Renal function is stable despite diuresis. Néstor nue diuresis as tolerated. 2. Hyperkalemia, mild, replace and monitor magnesium and potassium. 3. Proteinuria. 4. Hypertension. 5. Obesity. Plan is to monitor renal function. Check labs in the morning including magnesium and replace if need ed. M-spike is negative.
[2017-05-04 06:06] LABS: Anion Gap 16 mmol/L (10-20); BUN (Urea Nitrogen) 36 mg/dL (9.8-20.1); Calc. Creatinine Clearance 70 mL/min (70-130); Calcium 8.8 mg/dL (7.8-10.44); Carbon Dioxide 28 mmol/L (22-29); Chloride 101 mmol/L (98-107); Estimated GFR-MDRD 32; Glucose 142 mg/dL (70-105); Magnesium 2.1 mg/dL (1.6-2.6); Potassium 3.5 mmol/L (3.5-5.1); Sodium 141 mmol/L (136-145)
[2017-05-04] MEDS: Amlodipine 10 MG TAB PO SCH (09:14)
[2017-05-04] MEDS: Insulin Detemir 100 UNITS/ML 30 UNITS in Pre-Filled Syringe 1 EACH SC SCH (09:14)
[2017-05-04] MEDS: cloNIDine 0.1 MG TAB PO SCH ×2 (09:15→16:00)
[2017-05-04] MEDS: Furosemide 40 MG TAB PO SCH ×2 (09:15→16:01)
[2017-05-04] MEDS: hydrALAZINE 25 MG TAB PO SCH ×2 (09:15→16:00)
[2017-05-04] MEDS: Aspirin 325 MG TAB PO SCH (09:15)
[2017-05-04] MEDS: Enoxaparin Sodium 40 MG/0.4 ML SYRINGE SC SCH (09:16)
[2017-05-04] MEDS: cefTRIAXone\\ROCEPHIN 2 GM in Sodium Chloride 0.9% 100 ML IVPB SCH (09:17)
[2017-05-04] MEDS: Polyethylene Glycol 3350 17 GM Packet PO SCH (09:19)
--- NOTE | 2017-05-04 09:32 | DIS ---
DISCHARGE DIAGNOSES: 1. Acute on chronic systolic heart failure. 2. Acute kidney injury on chronic kidney disease stage 4. 3. Diabetes. 4. Hypertension. 5. Hyperlipidemia. 6. Morbid obesity. 7. Tobacco history, quit 1 year ago. 8. Sedentary lifestyle. 9. Poor diet. 10. Noncompliance. DISCHARGE MEDICATIONS: Levemir 15 b.i.d., metoprolol 100 at bedtime, sertraline 100 mg daily, Norvas c 10 p.o. at bedtime, clonidine 0.1 t.i.d., aspirin 325 daily, Lasix 40 b.i.d., hydralazine 50 p.o. t .i.d. FOLLOWUP: Follow up 1 week on Monday at 10:50 a.m. BRIEF HISTORY: This is a 57-year-old black female with a history of congestive heart failure, morbid obesity, diabetes who presented with chest pain. One week prior, she developed a low grade fever, h eadache, myalgias and arthralgias. She thought she had the flu. She has been experiencing increasin g shortness of breath and having difficulty walking even short distances. She became frustrated and presented to the emergency room where she was discovered to be in congestive heart failure. She rare ly sees a doctor. She last saw myself approximately 1 year ago in June 2016. She has a doctor in [facility] which she has not seen recently. She admits to a very poor diet and sedentary lifestyle. She did quit smoking 1 year ago. HOSPITAL COURSE: The patient was placed on IV Lasix. Abdominal and pelvic CTs were done which were found to be negative. She did have a recent echocardiogram on 04/28/2017 which revealed an ejection fraction of 40-45%, with 2/3 systolic dysfunction with a moderately dilated left atrium. Mild mitral regurg and mild tricuspid regurg was also noted. Dr. Marti was consulted as well as Dr. Root from [facility]. The patient slowly made progress. We had to fluid restrict her in order for her to diurese a ppropriately. The patient at this time has a good pulse ox on room air. She will be discharged to [facility] on Monday. She will also follow up with Dr. Root and Dr. Marti. Final white count 8.5, H&H of 11 and 35. The patient's creatinine has decreased from 2.24 to 1.96. Blood sugar 180, 142, 134, BUN 36, sodium 141, potassium 3.5. Chest x-ray on 05/02/2016 showed persi stent cardiomegaly without any pulmonary edema. The patient is well aware of the importance of weigh t loss, diet and compliance. I have tried emphasized to her the importance of taking her medicines r egularly. She also needs to see her physician on a regular basis. I am always available to her.
--- NOTE | 2017-05-04 12:03 | PRG ---
DATE OF SERVICE: 05/04/2017 SUBJECTIVE: Patient was seen and examined at bedside and overnight events noted. Patient denies any shortness of breath or chest pain or palpitation. No history of nausea or vomiting or diarrhea or f ever or chills or cramps. OBJECTIVE: GENERAL: This is an obese female in no apparent distress. VITAL SIGNS: Temperature 97.3, pulse 56, respiratory rate 24, blood pressure 136/73. HEENT: Atraumatic, normocephalic. Oral mucosa is moist. NECK: Supple. CARDIOVASCULAR: S1, S2 heard. Rate and rhythm regular. RESPIRATORY: Clear to auscultation. GASTROINTESTINAL: Abdomen is soft. MUSCULOSKELETAL: No tenderness, no edema. DERMATOLOGIC: No skin rash. NEUROLOGIC: Alert and awake and oriented x3. No focal neurologic deficits. Moving all the extremit ies. PSYCHIATRIC: Mood and affect normal. LABORATORY DATA: Potassium 3.5, BUN 36, creatinine 1.9. ASSESSMENT AND PLAN: 1. Acute kidney injury on chronic kidney disease. Renal function is better. Continue on diuresis. Agree with discharge today and follow up with Dr. Root in 1 week. 2. Hyperkalemia. 3. Proteinuria. 4. Hypertension. 5. Obesity. Patient was counseled to have weight loss and close monitor her renal function as an outpatient. Sukhdeep id nephrotoxins. We will continue on reduced dose of Lasix with focus on weight reduction and lifest yle interventions. We will follow.
[2017-05-04 15:49] VITALS: TEMP 98.5
[2017-05-04] MEDS: ALPRAZolam 0.5 MG TAB PO PRN (16:00)
[2017-05-04 16:17] VITALS: BP 168/104
[2017-05-04] MEDS ORDERED: hydrALAZINE 25 MG TAB PO SCH (17:44)
--- NOTE | 2017-05-04 17:44 | PDOC.CTH ---
Cardiology Progress Note - Subjective She is doing much better. No longer needing O2 supplementation. breathing is back to baseline. - Objective Vital Signs Temp Pulse Pulse Pulse Resp BP BP 05/04/17 16:00 63 162/105 H 05/04/17 15:48 98.5 F 63 20 05/04/17 13:46 86 55 L 168/104 H 05/04/17 12:00 98.1 F 58 L 16 05/04/17 09:15 62 162/100 H 05/04/17 09:14 62 162/100 H 05/04/17 08:00 98.1 F 58 L 16 BP BP Pulse Ox Pulse Ox Pulse Ox 05/04/17 16:00 05/04/17 15:48 162/105 H 97 05/04/17 13:46 147/81 H 100 95 05/04/17 12:00 143/81 H 98 05/04/17 09:15 05/04/17 09:14 05/04/17 08:00 Weight 311 lb 12.8 oz 05/03/17 05/04/17 05/05/17 06:59 06:59 06:59 Intake Total 730 998 Output Total 1850 Balance 730 -852 - Physical Examination General/Neuro: alert & oriented x3, NAD Neck: no JVD present Lungs: CTA, unlabored respirations Heart: RRR Abdomen: NT/ND Extremities: other: (no edema) - Telemetry Telemetry Rhythm: NSR - Labs Result Diagrams: 05/03/17 05:28 05/04/17 04:55 Troponin/CKMB CK-MB (CK-2) 3.3 ng/mL (0-6.6) 04/27/17 22:47 Troponin I 0.264 ng/mL (< 0.028) H 04/27/17 22:47 - Assessment/Plan 1. Acute systolic heart failure, improved. 2. Moderately reduced LV function EF at 40-45% 3. HTN 4. Morbid obesity 5. CKD stage 4 6. Chronic hypoxic respiratory insufficiency. I suspect a lot of her issues are from her weight and her severe СВЕТЛАНА. PLAN: - Continue PO Lasix. - Agree with fluid restriction. - BP better bit still not well controlled. Will increase hydralazine to 100 mg TID. - No ACEI or ARB due to renal function. - Continue BB. - May discharge home at any time from cardiac perspective. . - Will need outpatient sleep study. - Home in the next 24 to 48 hrs. - Follow up in the office in 1 month.
== END 2017-05-04 19:28 | disposition home or self-care (01) | DRG 291 ==
LOC: ERS 22:30 → ERHOLD 04-28 00:26 → 2SE 04-28 02:26 → 2NO 04-28 11:01 → 2SE 04-28 11:04
PROVIDERS: ADMIT Family Medicine; ATTEND Family Medicine
DX: I13.0 Hypertensive heart and chronic kidney disease with heart failure and stage 1 through stage 4 chronic kidney disease, or unspecified chronic kidney disease (principal); I50.23 Acute on chronic systolic (congestive) heart failure; E11.21 Type 2 diabetes mellitus with diabetic nephropathy; N17.9 Acute kidney failure, unspecified; N18.4 Chronic kidney disease, stage 4 (severe); E66.01 Morbid (severe) obesity due to excess calories; I08.1 Rheumatic disorders of both mitral and tricuspid valves; E87.5 Hyperkalemia; Z68.43 Body mass index [BMI] 50.0-59.9, adult; N39.0 Urinary tract infection, site not specified; E11.22 Type 2 diabetes mellitus with diabetic chronic kidney disease; Z87.891 Personal history of nicotine dependence; E78.5 Hyperlipidemia, unspecified; Z79.84 Long term (current) use of oral hypoglycemic drugs; Z88.1 Allergy status to other antibiotic agents; Z91.19 Patient's noncompliance with other medical treatment and regimen; B96.20 Unspecified Escherichia coli [E. coli] as the cause of diseases classified elsewhere; D64.9 Anemia, unspecified; Z79.82 Long term (current) use of aspirin; R06.89 Other abnormalities of breathing
CPT/HCPCS: 36415; 36416; 71045; 71046; 74176; 76770; 80048; 80053; 81003; 81015; 82553; 82570; 83036; 83735; 83880; 84156; 84165; 84443; 84484; 85025; 87077; 87086; 87186; 87804; 93005; 93306; 93798; 96374; 96375; A4216; J0360; J0696; J1650; J1815; J1940; J7050

== ENCOUNTER 2017-11-17 11:18 | Emergency (ER) | payer MEDICAID, SELFPAY ==
[2017-11-17 12:04] LABS: #Basophils 0.1 thou/uL (0.0-0.2); #Eosinphils 0.2 thou/uL (0.0-0.7); #Lymphocytes 2.1 thou/uL (1.20-3.40); #Monocytes 0.7 thou/uL (0.11-0.59); #Neutrophils 6.2 thou/uL (1.40-6.50); %Basophils 1.1 % (0.0-1.0); %Lymphocytes 22.7 % (21.0-51.0); %Monocytes 7.3 % (0.0-10.0); %Neutrophils 66.9 % (42.0-75.0); Mean Corpuscular HGB CONC 31.6 g/dL (32.0-36.0); Mean Corpuscular Hemoglobin 27.1 pg (27.0-31.0); Mean Corpuscular Volume 85.9 fL (78.0-98.0); Mean Platelet Volume 8.8 fL (7.4-10.4); Platelet Count 291 thou/uL (130-400); RBC Distribution Width 12.1 % (11.5-14.5); Red Blood Cell (RBC) Count 4.44 mill/uL (4.20-5.40); White Blood Cell (WBC) Count 9.3 thou/uL (4.8-10.8)
[2017-11-17 12:30] LABS: CKMB 2.3 ng/mL (0-6.6); Troponin I 0.039 ng/mL (< 0.028)
[2017-11-17 12:35] LABS: ALT (SGPT) 16 U/L (8-55); AST (SGOT) 19 U/L (5-34); Albumin 3.7 g/dL (3.5-5.0); Alkaline Phosphatase 89 U/L (40-150); Anion Gap 15 mmol/L (10-20); BUN (Urea Nitrogen) 39 mg/dL (9.8-20.1); Bilirubin, Total 0.3 mg/dL (0.2-1.2); Calc. Creatinine Clearance 0 mL/min (70-130); Calcium 9.3 mg/dL (7.8-10.44); Carbon Dioxide 23 mmol/L (22-29); Chloride 100 mmol/L (98-107); Estimated GFR-MDRD 28; Globulin 3.5 g/dL (2.4-3.5); Glucose 340 mg/dL (70-105); Lipase 64 U/L (8-78); Magnesium 1.9 mg/dL (1.6-2.6); Phosphorus 3.3 mg/dL (2.3-4.7); Potassium 4.1 mmol/L (3.5-5.1); Protein, Total 7.2 g/dL (6.0-8.3); Sodium 134 mmol/L (136-145)
[2017-11-17 12:40] LABS: Bilirubin Negative (Negative); Blood, Urine Negative (Negative); Clarity CLEAR (Clear); Glucose, Urine (Dipstick) 250 mg/dL (Negative); Leukocyte Negative (Negative); Nitrite Negative (Negative); Protein, Urine (Dipstick) 300 mg/dL (Neg-Trace); Specific Gravity, Urine 1.014 (1.002-1.036); Urobilinogen 0.2 mg/dL (0.2-1.0); pH, Urine 5.5 (5.0-9.0)
[2017-11-17 12:42] LABS: Bacteria/HPF Rare-Few HPF (None Seen); Hyaline Casts/LPF 4-6 HYALINE CAST LPF (0-3 Hyaline); Pathc Cast-AUWi Flag 0.29 (0-2.49); RBC/HPF 0-3 HPF (0-3)
== END 2017-11-17 14:18 | disposition home or self-care (01) ==
LOC: ERS 11:18
DX: E11.65 Type 2 diabetes mellitus with hyperglycemia (principal); I13.0 Hypertensive heart and chronic kidney disease with heart failure and stage 1 through stage 4 chronic kidney disease, or unspecified chronic kidney disease; I50.9 Heart failure, unspecified; N18.4 Chronic kidney disease, stage 4 (severe); F41.9 Anxiety disorder, unspecified; F32.9 Major depressive disorder, single episode, unspecified; Z79.899 Other long term (current) drug therapy; Z79.82 Long term (current) use of aspirin
CPT/HCPCS: 36415; 36416; 80053; 81003; 81015; 82010; 82553; 83690; 83735; 84100; 84484; 85025; 96360; 96361

== ENCOUNTER 2017-12-20 10:29 | Outpatient (CLI) | payer OTHER | END 2017-12-20 10:30 | disposition home or self-care (01) | LOC: DTY/OP 10:29 | PROVIDERS: ATTEND Family Medicine | DX: E11.9 Type 2 diabetes mellitus without complications (principal); E66.9 Obesity, unspecified; Z68.42 Body mass index [BMI] 45.0-49.9, adult; Z71.3 Dietary counseling and surveillance | CPT/HCPCS: 97802 ==

== ENCOUNTER 2018-05-14 10:05 | Inpatient (IN) | payer MEDICAID, OTHER ==
[2018-05-14 11:13] LABS: #Basophils 0.1 thou/uL (0.0-0.2); #Eosinphils 0.2 thou/uL (0.0-0.7); #Lymphocytes 1.9 thou/uL (1.20-3.40); #Monocytes 0.7 thou/uL (0.11-0.59); #Neutrophils 5.5 thou/uL (1.40-6.50); %Basophils 1.4 % (0.0-1.0); %Eosinophils 2.5 % (0.0-10.0); %Lymphocytes 22.1 % (21.0-51.0); %Monocytes 8.2 % (0.0-10.0); %Neutrophils 65.9 % (42.0-75.0); Hemoglobin 11.5 g/dL (12.0-16.0); Hypochromia SLIGHT = 6-15 cells (100X) (0-5/hpf); MDiff Complete? YES; Mean Corpuscular HGB CONC 29.7 g/dL (32.0-36.0); Mean Corpuscular Hemoglobin 26.6 pg (27.0-31.0); Mean Corpuscular Volume 89.5 fL (78.0-98.0); Mean Platelet Volume 8.2 fL (7.4-10.4); Platelet Count 334 thou/uL (130-400); Platelet Morphology Comment Appears Adequate; RBC Distribution Width 13.5 % (11.5-14.5); Red Blood Cell (RBC) Count 4.32 mill/uL (4.20-5.40); White Blood Cell (WBC) Count 8.4 thou/uL (4.8-10.8)
[2018-05-14 11:14] LABS: ALT (SGPT) 12 U/L (8-55); AST (SGOT) 15 U/L (5-34); Albumin 3.6 g/dL (3.5-5.0); Alkaline Phosphatase 73 U/L (40-150); Anion Gap 14 mmol/L (10-20); BUN (Urea Nitrogen) 43 mg/dL (9.8-20.1); Bilirubin, Total 0.2 mg/dL (0.2-1.2); CK (CPK) 119 U/L (29-168); Calc. Creatinine Clearance 0 mL/min (70-130); Calcium 9.4 mg/dL (7.8-10.44); Carbon Dioxide 22 mmol/L (22-29); Chloride 107 mmol/L (98-107); Estimated GFR-MDRD 28; Globulin 3.7 g/dL (2.4-3.5); Glucose 131 mg/dL (70-105); Lipase 50 U/L (8-78); Potassium 3.5 mmol/L (3.5-5.1); Protein, Total 7.3 g/dL (6.0-8.3); Sodium 139 mmol/L (136-145)
--- NOTE | 2018-05-14 11:27 | RAD ---
PORTABLE UPRIGHT FRONTAL CHEST RADIOGRAPH: Date: 05-14-18 Comparison: 05-02-17 History: Pain beneath the left breast. Left arm pain, nausea. FINDINGS: Body habitus limits detailed assessment. The cardiac silhouette is prominent. There is no pneumothora x, pleural fluid, focal consolidation or alveolar edema. IMPRESSION: No focal consolidation or alveolar edema. POS: [facility]
[2018-05-14 11:36] LABS: CKMB 2.4 ng/mL (0-6.6)
[2018-05-14] MEDS ORDERED: Nitroglycerin 0.4 MG TAB (25 Tab Bottle) PO PRN (12:43)
[2018-05-14 13:19] LABS: Bilirubin Negative (Negative); Blood, Urine Negative (Negative); Clarity CLEAR (Clear); Glucose, Urine (Dipstick) Negative (Negative); Leukocyte Negative (Negative); Nitrite Negative (Negative); Protein, Urine (Dipstick) 300 mg/dL (Neg-Trace); Specific Gravity, Urine 1.015 (1.002-1.036); Urobilinogen 0.2 mg/dL (0.2-1.0); pH, Urine 5.5 (5.0-9.0)
[2018-05-14 13:21] LABS: Bacteria/HPF None Seen HPF (None Seen); Hyaline Casts/LPF 0-3 HYALINE CAST LPF (0-3 Hyaline); Pathc Cast-AUWi Flag 0.29 (0-2.49); RBC/HPF 0-3 HPF (0-3); Squamous Epithelial 0-3 HPF (0-3)
--- NOTE | 2018-05-14 14:41 | HP ---
HISTORY OF PRESENT ILLNESS: This is a 58-year-old black female with chronic kidney disease stage 4, hypertension, hyperlipidemia, and diabetes, who presents with chest pain. The patient has a long history of noncompliance. I saw her for several years. She then moved to [place] and she recently returned to my care. She was admitted to [facility] approximately 1 year ago, where Dr. Marti saw her and an echo revealed systolic heart failure with ejection fraction of 40% to 45%. Her blood pressure and diabetes was also found to be very uncontrolled. Her medications have been titrated off and on over the past year. She is being followed by Dr. Root. She failed to follow up with Dr. Marti. She presents today with a 1-week history of chest pain, squeezing-like sensation radiating to her left chest. She states that she has been nauseated with diaphoresis. She also has been exercising lately. She complains of left back soreness. At this time, she is chest pain free, but her blood pressure is quite elevated. She was evaluated in the ER and her troponin was also elevated to 0.048. PAST MEDICAL HISTORY: Hypertension, hyperlipidemia, diabetes, noncompliance, history of congestive heart failure in 2011, and systolic heart failure in April 2017. PAST SURGICAL HISTORY: Include , cholecystectomy, and right ulnar nerve surgery. FAMILY HISTORY: Father with Alzheimer's. Mother with manic depression, diabetes, and hypertension. Siblings with hypertension. Paternal grandfather, all of her grandparents have . SOCIAL HISTORY: She is a former smoker, quit in 2015. She smoked half pack per day for 5 years. She does not drink any alcohol at this time. She is single. She has 1 child. She has worked as a customer operations intern. MEDICATIONS: 1. Hydralazine 100 t.i.d. 2. Aspirin 325 daily. 3. Clonidine 0.1 q.8 hours. 4. Lasix 20 daily. 5. Zoloft 150 daily. 6. Amlodipine 10 daily. 7. Losartan 100 daily. 8. Metoprolol 150 at bedtime. 9. Glipizide 10 b.i.d. 10. Lantus 15 b.i.d. 11. Xanax p.r.n. ALLERGIES: TO BACTRIM, WHICH CAUSES ITCHING. REVIEW OF SYSTEMS: As above. PHYSICAL EXAMINATION: VITAL SIGNS: Blood pressure 186/94, pulse 67, respiration 18, and pulse ox 100%. GENERAL: No acute distress at this time. The patient is morbidly obese. HEENT: Clear. NECK: Supple. HEART: Regular rate and rhythm. LUNGS: Clear. ABDOMEN: Obese. EXTREMITIES: With no edema. She does have left back chest wall tenderness. LABORATORY DATA: White count 8.4, H and H 11 and 38, and platelets of 334. Sodium 139, potassium 3.5, creatinine 2.19, BUN 43, and glucose 131. Troponin I of 0.048. Lipase 50. Chest x-ray, no acute disease. ASSESSMENT: 1. Chest pain, rule out myocardial infarction. 2. Uncontrolled hypertension, diabetes, and hyperlipidemia. 3. History of acute on chronic systolic heart failure. 4. Morbid obesity. 5. Obstructive sleep apnea. 6. Back chest wall pain. PLAN: 1. Admit. 2. Cardiolite stress. 3. Echo. 4. Resume medications. 5. Plus-minus catheterization. 6. Consult Dr. Marti and Dr. Root. Job ID: [id number]
[2018-05-14 16:00] VITALS: BMI 52.0
[2018-05-14] MEDS: Furosemide 40 MG TAB PO SCH (16:26)
[2018-05-14] MEDS: cloNIDine 0.1 MG TAB PO SCH ×2 (16:26→21:08)
[2018-05-14] MEDS: hydrALAZINE 25 MG TAB PO SCH ×2 (16:27→21:08)
[2018-05-14 17:57] LABS: CKMB 2.3 ng/mL (0-6.6)
[2018-05-14] MEDS ORDERED: Enoxaparin Sodium 80 MG/0.8 ML SYRINGE SC SCH (21:00)
[2018-05-14] MEDS: Enoxaparin Sodium 100 MG/ML SYRINGE SC SCH (21:13)
[2018-05-14] MEDS: Enoxaparin Sodium 40 MG/0.4 ML SYRINGE SC SCH (21:14)
[2018-05-14] MEDS: HumuLIN 70/30 (300 UNITS/3 ML VIAL) SC SCH (21:16)
--- NOTE | 2018-05-15 01:22 | CON ---
DATE OF CONSULTATION: HISTORY OF PRESENT ILLNESS: Clarissa Martinez is a 58-year-old black female was evaluated by Dr. Marti in April 2017. She presented with shortness of breath and increasing lower extremity edema. Echocardiogram at that time revealed ejection fraction of 40% to 45% with evidence of diastolic dysfunction, mild mitral regurgitation, mild tricuspid regurgitation. She was diuresed and has never returned for followup. She now is admitted with left-sided chest and left back discomfort. This would be somewhat of a sharp pain that lasts 3-4 minutes. The pain is made better when she is supine in bed. It is worse when she is moving. Over the last several weeks , she has started using 5-pound weights to try to tone up her arms. PAST MEDICAL HISTORY: Hypertension, hyperlipidemia, diabetes, systolic and diastolic heart failure. MEDICATIONS: 1. Amlodipine 10 mg daily. 2. Aspirin 325 daily. 3. Clonidine 0.1 t.i.d. 4. Furosemide 20 daily. 5. Glucotrol 10 mg b.i.d. 6. Hydralazine 100 mg t.i.d. 7. Insulin. 8. Losartan 100 daily. 9. Metoprolol 150 at bedtime. 10. Sertraline 150 at bedtime. 11. Simvastatin 40 at bedtime. ALLERGIES: BACTRIM. SOCIAL HISTORY: She stopped smoking 2-3 years ago. PAST SURGICAL HISTORY: , cholecystectomy, and right ulnar nerve surgery. REVIEW OF SYSTEMS: A 10-point review of systems is otherwise unremarkable. PHYSICAL EXAMINATION: VITAL SIGNS: Blood pressure 140/79 and pulse of 70. HEENT: PERRL. NECK: Supple. CHEST: Clear. CARDIAC: S1 and S2 normal without any S3, S4, or murmurs. ABDOMEN: Obese. Normal bowel sounds. No tenderness. EXTREMITIES: Revealed no clubbing, cyanosis, or edema. NEUROLOGIC: Grossly intact. SKIN: Warm and dry. MUSCULOSKELETAL: Examination revealed palpable left chest and left back discomfort, that seems to reproduce her pain. LABORATORY DATA: EKG reveals normal sinus rhythm and is unremarkable. Sodium 139, potassium 3.5, chloride 107, carbon dioxide 22, BUN 43, and creatinine 2.19. Troponin-I 0.048 (one year ago, her troponin-I was 0.264). Hemoglobin 11.5, hematocrit 38.6, white count 8400, and platelets 334,000. IMPRESSION: 1. Atypical left chest and left back discomfort, which is most consistent with chest wall pain. 2. Hypertension. 3. Hypercholesterolemia. 4. Diabetes. 5. Former smoker. 6. Morbid obesity. 7. History of systolic and diastolic heart failure. PLAN: Ms. Martinez's troponin-I is very mildly elevated and may be related to her renal insufficiency. However, her troponin-I was over five times higher last year. I do not feel this is significant. Ideally, the best treatment for this would be nonsteroidal anti-inflammatory drugs; however, with her renal insufficiency, those should be avoided. I will place her on Flexeril 10 mg t.i.d. as well as heat to the area. Adenosine Cardiolite testing will also be performed. Job ID: [id number] [facility]
[2018-05-15] MEDS: Cyclobenzaprine 10 MG TAB PO PRN ×2 (05:11→14:46)
[2018-05-15 05:42] LABS: Cardiac Risk 2.8 (Less than 4.5)
--- NOTE | 2018-05-15 05:49 | CON ---
DATE OF CONSULTATION: 05/14/2018 TYPE OF CONSULTATION: Nephrology. CONSULTING PHYSICIAN: Dr. Hernandez. REASON FOR CONSULTATION: Hypetension and CKD. REASON FOR ADMISSION: Chest pain. HISTORY OF PRESENT ILLNESS: This is a 58-year-old female with a history of hypertension and hyperlipidemia, noncompliance; CKD; and CHF, who came to the hospital with hypertension and chest pain and has been evaluated. She was found to have elevated creatinine. Her blood pressure is currently controlled without intervention and this morning her chest pain is better. No nausea or vomiting. No palpitations. No shortness of breath reported. No fevers or chills. PAST MEDICAL HISTORY: Positive for hypertension, hyperlipidemia, diabetes, obesity, congestive heart failure, and CKD stage 4. PAST SURGICAL HISTORY: , cholecystectomy, right ulnar nerve surgery. HOME MEDICATIONS: 1. Hydralazine. 2. Aspirin. 3. Clonidine. 4. Lasix. 5. Zoloft. 6. Amlodipine. 7. Losartan. 8. Metoprolol. 9. Glipizide. 10. Lantus. 11. Xanax. ALLERGIES: BACTRIM. SOCIAL HISTORY: No smoking, alcohol, or illicit drug use. FAMILY HISTORY: No history of kidney disease. REVIEW OF SYSTEMS: CONSTITUTIONAL: Negative for weight loss or gain, ability to conduct usual activities. SKIN: Negative for rash, itching. EYES: Negative for double vision, pain. ENT/MOUTH: Negative for nose bleeding, neck stiffness, pain, tenderness. CARDIOVASCULAR: Negative for palpitations, dyspnea on exertion, orthopnea. RESPIRATORY: Negative for shortness of breath, wheezing, cough, hemoptysis, fever or night sweats. GASTROINTESTINAL: Negative for poor appetite, abdominal pain, heartburn, nausea, vomiting, constipation, or diarrhea. GENITOURINARY: Negative for urgency, frequency, dysuria, nocturia. MUSCULOSKELETAL: Negative for pain, swelling. NEUROLOGIC/PSYCHIATRIC: Negative for anxiety, depression. ALLERGY/IMMUNOLOGIC: Negative for skin rash, bleeding tendency. PHYSICAL EXAMINATION: GENERAL: Reveals an obese female, in no apparent distress. VITAL SIGNS: Temperature 98.4, pulse 70, respiratory rate 18, blood pressure 140/79. HEENT: Atraumatic and normocephalic. Oral mucosa is moist. NECK: Supple. CVS: S1 and S2 heard. Rate and rhythm regular. RESPIRATORY: Clear. GASTROINTESTINAL: Abdomen is soft. MUSCULOSKELETAL: 1+ edema. DERMATOLOGIC: No skin rash. NEUROLOGIC: Alert and awake. PSYCHIATRIC: Normal mood and affect. LABORATORY DATA: Hemoglobin is 11.5, potassium 3.5, BUN is 43, creatinine is 2.1. ASSESSMENT AND PLAN: 1. Chronic kidney disease, stage 4, stable. 2. Hypertension, seems to be controlled now, most likely from noncompliance. Cautious use of medications. Close monitoring of blood pressure is recommended. 3. Edema, controlled. 4. Mild hypoxemia. 5. Anemia, mild. 6. Obesity, counseled. 7. Proteinuria, most likely from hypertension. Continue close monitoring of renal function. Avoid nephrotoxins. We will follow. Thank you for the consult. Job ID: [id number]
[2018-05-15] MEDS: cloNIDine 0.1 MG TAB PO SCH ×3 (11:02→21:27)
[2018-05-15] MEDS: hydrALAZINE 25 MG TAB PO SCH ×3 (11:02→21:27)
[2018-05-15] MEDS: Furosemide 40 MG TAB PO SCH ×2 (11:02→14:46)
[2018-05-15] MEDS: Aspirin 325 MG TAB PO SCH (11:02)
[2018-05-15] MEDS: Amlodipine 10 MG TAB PO SCH (11:02)
[2018-05-15] MEDS: Enoxaparin Sodium 100 MG/ML SYRINGE SC SCH ×2 (11:03→21:27)
[2018-05-15] MEDS: Enoxaparin Sodium 40 MG/0.4 ML SYRINGE SC SCH ×2 (11:04→21:28)
[2018-05-15] MEDS: HumuLIN 70/30 (300 UNITS/3 ML VIAL) SC SCH ×2 (11:16→21:31)
[2018-05-15] MEDS: Losartan 25 MG TAB PO SCH (11:17)
--- NOTE | 2018-05-15 11:20 | NM ---
CARDIAC SPECT: HISTORY: A 58-year-old female with chest pain, CHF, hypertension, diabetes, and dyslipidemia. TECHNIQUE: A myocardial perfusion scan was performed using the single isotope two-day protocol with 31 millicuri es technetium 99m sestamibi, injected intravenously, for the rest and stress images. Pharmacologic s tress with Lexiscan was monitored and interpreted by Dr. Marti. FINDINGS: Fairly homogeneous tracer distribution is seen in the myocardial segments on stress and rest images w ithout fixed or reversible defects. GATED SPECT LVEF: 44% WALL MOTION EXAM: Global hypokinesis. IMPRESSION: No evidence of reversible ischemia. POS: C
[2018-05-15] MEDS ORDERED: Regadenoson 0.4 MG/5 ML SYRINGE ONE (11:27)
--- NOTE | 2018-05-15 12:05 | PRG ---
DATE OF SERVICE: 05/15/2018 SUBJECTIVE: The patient is doing well this morning. No complaints of any chest pain, shortness of breath, nausea, or vomiting. OBJECTIVE: VITAL SIGNS: Temperature 97.6, pulse 68, respirations 20, pulse ox 96, and blood pressure 132/64. HEART: Regular rate and rhythm. LUNGS: Clear. ABDOMEN: Soft. EXTREMITIES: No edema. LABORATORY DATA: Blood sugar 140, 135, and 144. Triglyceride 134 and cholesterol 133. ASSESSMENT: 1. Chest pain, rule out myocardial infarction. Cardiolite in progress. 2. Uncontrolled hypertension, diabetes, and hyperlipidemia. 3. Chest wall pain. 4. History of acute on chronic systolic heart failure. 5. Morbid obesity. 6. Obstructive sleep apnea. 7. Chronic kidney disease stage 4. PLAN: 1. Complete Cardiolite stress test today. 2. Plan to discharge home if Cardiolite negative. 3. Complete echo today. 4. Hopefully can be discharged today. Job ID: [id number]
--- NOTE | 2018-05-15 15:16 | PRG ---
DATE OF SERVICE: SUBJECTIVE: Patient was seen and examined at bedside and overnight events noted. Patient denies any shortness of breath or chest pain or palpitation. No history of nausea or vomiting or diarrhea or fever or chills or cramps. OBJECTIVE: GENERAL: This is a morbidly obese female, in no acute distress. VITAL SIGNS: Temperature 97.8. Heart rate 76. Respiratory rate 21. Blood pressure 141/73. HEENT: Atraumatic, normocephalic. Oral mucosa is moist NECK: Supple. CARDIOVASCULAR: S1, S2 heard. Rate and rhythm regular. RESPIRATORY: Clear to auscultation. GASTROINTESTINAL: Abdomen is soft. MUSCULOSKELETAL: No tenderness. No edema. DERMATOLOGIC: No skin rash. NEUROLOGIC: Alert and awake and oriented X3. No focal neurologic deficits. Moving all the extremities. PSYCHIATRIC: Mood and affect normal. LABORATORY DATA: No labs done today. ASSESSMENT AND PLAN: 1. Acute kidney injury on chronic kidney disease stage 4. Stable labs. 2. Hypertension, seems to be getting controlled, continue home medications . 3. Edema, controlled. 4. Anemia. 5. Obesity. 6. Proteinuria. 7. Blood pressures seems to be stable. We will follow up. Job ID: [id number]
--- NOTE | 2018-05-15 20:11 | PDOC.CTH ---
Cardiology Progress Note - Subjective Doing well. No chest pain. - Objective Vital Signs Temp Pulse Resp BP Pulse Ox 05/15/18 15:20 98.9 F 78 21 H 176/87 H 94 L 05/15/18 14:47 81 05/15/18 11:18 97.8 F 76 20 141/79 H 96 05/15/18 11:02 66 Weight 312 lb 8 oz 05/14/18 05/15/18 05/16/18 06:59 06:59 06:59 Intake Total 1150 480 Output Total 3000 1600 Balance -1850 -1120 - Physical Examination General/Neuro: alert & oriented x3, NAD Neck: no JVD present Lungs: CTA, unlabored respirations Heart: RRR Abdomen: NT/ND Extremities: + edema B (Trace) - Telemetry Telemetry Rhythm: NSR - Labs Result Diagrams: 05/14/18 10:33 05/14/18 10:33 Troponin/CKMB CK-MB (CK-2) 2.3 ng/mL (0-6.6) 05/14/18 16:44 Troponin I 0.041 ng/mL (< 0.028) H 05/14/18 16:44 - Assessment/Plan 1. Atypical chest pain, MSK most likely 2. Mild LV dysfunction EF at 44% on MPI normal on echo. 3. Non compliance. 4. HTN 5. CKD stage 4 PLAN - No ischemia on MPI - Will add Imdur for better BP control. - May discharge home anytime from cardiac perspective. - Will have to follow up in the office in 1 month.
[2018-05-16 00:24] LABS: Hemoglobin 11.5 g/dL (12.0-16.0); Platelet Count 305 thou/uL (130-400)
[2018-05-16] MEDS: Cyclobenzaprine 10 MG TAB PO PRN ×3 (04:12→20:57)
[2018-05-16] MEDS: Furosemide 40 MG TAB PO SCH (10:23)
[2018-05-16] MEDS: cloNIDine 0.1 MG TAB PO SCH ×3 (10:23→20:51)
[2018-05-16] MEDS: Aspirin 325 MG TAB PO SCH (10:23)
[2018-05-16] MEDS: Losartan 25 MG TAB PO SCH (10:23)
[2018-05-16] MEDS: Amlodipine 10 MG TAB PO SCH (10:24)
[2018-05-16] MEDS: hydrALAZINE 25 MG TAB PO SCH ×3 (10:26→20:51)
[2018-05-16] MEDS: HumuLIN 70/30 (300 UNITS/3 ML VIAL) SC SCH ×2 (10:27→20:56)
[2018-05-16] MEDS: Enoxaparin Sodium 100 MG/ML SYRINGE SC SCH (10:27)
[2018-05-16] MEDS: Enoxaparin Sodium 40 MG/0.4 ML SYRINGE SC SCH (10:27)
--- NOTE | 2018-05-16 10:53 | PRG ---
DATE OF SERVICE: 05/16/2018 SUBJECTIVE: No complaints of any chest pain, shortness of breath, nausea, or vomiting. The patient is doing well otherwise. OBJECTIVE: VITAL SIGNS: Temperature 98.3, pulse 65, respirations 16, pulse ox 96%, and blood pressure 139/75 and 173/88. HEART: Regular rate and rhythm. LUNGS: Clear. ABDOMEN: Soft. EXTREMITIES: With no edema. LABORATORY DATA: White count 8.4, H and H 11 and 35. Creatinine 2.51, GFR 24, blood sugar 173 and 182. ASSESSMENT: 1. Chest pain. No evidence of cardiac ischemia. Cardiolite stress test negative. 2. Uncontrolled hypertension, diabetes, and hyperlipidemia. 3. Chest wall pain. 4. Chronic kidney disease, stage 4. 5. History of acute on chronic systolic heart failure. 6. Morbid obesity. 7. Obstructive sleep apnea. PLAN: 1. Blood pressure is still somewhat elevated. The patient is on a large quantity of antihypertensive. Her creatinine has risen to 2.5. We will decrease Lasix to 40 q.a.m. instead of b.i.d. We will discuss with Dr. Browne for further recommendations on blood pressure control. 2. Continue discussed diet and exercise with the patient. She is attempting to begin an exercise program on her exercise bike. Job ID: [id number]
--- NOTE | 2018-05-16 12:04 | PRG ---
DATE OF SERVICE: 05/16/2018 SUBJECTIVE: Patient was seen and examined at bedside and overnight events noted. Patient denies any shortness of breath or chest pain or palpitation. No history of nausea or vomiting or diarrhea or fever or chills or cramps. OBJECTIVE: GENERAL: This is a morbidly obese female in no acute distress. VITAL SIGNS: Temperature 98.3. Heart rate 67. Respiratory rate 20. Blood pressure 139/74. HEENT: Atraumatic, normocephalic. Oral mucosa is moist NECK: Supple. CARDIOVASCULAR: S1, S2 heard. Rate and rhythm regular. RESPIRATORY: Clear to auscultation. GASTROINTESTINAL: Abdomen is soft. MUSCULOSKELETAL: No tenderness. No edema. DERMATOLOGIC: No skin rash. NEUROLOGIC: Alert and awake and oriented X3. No focal neurologic deficits. Moving all the extremities. PSYCHIATRIC: Mood and affect normal. LABORATORY DATA: Not done today. ASSESSMENT AND PLAN: 1. Acute kidney injury. Stable. 2. Hypertension, slightly . 3. Anemia. 4. Obesity. 5. Proteinuria. 6. Labs are stable. Continue to monitor blood pressure. Job ID: [id number]
--- NOTE | 2018-05-16 17:40 | PDOC.CTH ---
Cardiology Progress Note - Subjective No new issues. - Objective Vital Signs Temp Pulse Resp BP BP Pulse Ox 05/16/18 16:24 128/67 05/16/18 15:38 98.6 F 76 12 128/67 92 L 05/16/18 11:53 84 164/97 H 05/16/18 11:11 98.3 F 82 18 187/83 H 96 05/16/18 07:20 98.3 F 65 16 173/88 H 96 Weight 317 lb 6.4 oz 05/15/18 05/16/18 05/17/18 06:59 06:59 06:59 Intake Total 1150 1030 Output Total 3000 1600 Balance -1850 -570 - Physical Examination General/Neuro: alert & oriented x3, NAD Neck: no JVD present Lungs: CTA, unlabored respirations Heart: RRR Abdomen: NT/ND Extremities: + edema B (trace) - Telemetry Telemetry Rhythm: NSR - Labs Result Diagrams: 05/16/18 00:15 05/16/18 00:15 Troponin/CKMB CK-MB (CK-2) 2.3 ng/mL (0-6.6) 05/14/18 16:44 Troponin I 0.041 ng/mL (< 0.028) H 05/14/18 16:44 - Assessment/Plan 1. Atypical chest pain, MSK most likely 2. Mild LV dysfunction EF at 44% on MPI normal on echo. 3. Non compliance. 4. HTN 5. CKD stage 4 PLAN - No ischemia on MPI - Continue Imdur and other meds. - Creatinine bump likely from over diuresis, agree with decreased dose of lasix , would give small 250 ml IV NS bolus. - No ACS so will stop full dose Lovenox, will place on DVT prophylaxis. - Re evaluate creatinine in the morning if down trending would discharge home. - Follow up in 1 month.
[2018-05-16] MEDS ORDERED: Sodium Chloride 0.9% 250 ML IV SCH (17:45)
[2018-05-17] MEDS: hydrALAZINE 25 MG TAB PO SCH (08:09)
[2018-05-17] MEDS: Losartan 25 MG TAB PO SCH (08:09)
[2018-05-17] MEDS: Furosemide 40 MG TAB PO SCH (08:09)
[2018-05-17] MEDS: Amlodipine 10 MG TAB PO SCH (08:10)
[2018-05-17] MEDS: cloNIDine 0.1 MG TAB PO SCH (08:10)
[2018-05-17] MEDS: Aspirin 325 MG TAB PO SCH (08:11)
[2018-05-17] MEDS: HumuLIN 70/30 (300 UNITS/3 ML VIAL) SC SCH (08:12)
[2018-05-17 08:13] VITALS: BP 137/70; TEMP 98.6
[2018-05-17 08:37] LABS: #Basophils 0.1 thou/uL (0.0-0.2); #Eosinphils 0.2 thou/uL (0.0-0.7); #Lymphocytes 1.9 thou/uL (1.20-3.40); #Monocytes 0.8 thou/uL (0.11-0.59); #Neutrophils 4.6 thou/uL (1.40-6.50); %Basophils 1.2 % (0.0-1.0); %Eosinophils 3.2 % (0.0-10.0); %Lymphocytes 24.7 % (21.0-51.0); %Monocytes 10.2 % (0.0-10.0); %Neutrophils 60.6 % (42.0-75.0); Hemoglobin 11.1 g/dL (12.0-16.0); Mean Corpuscular HGB CONC 32.2 g/dL (32.0-36.0); Mean Corpuscular Hemoglobin 27.9 pg (27.0-31.0); Mean Corpuscular Volume 86.7 fL (78.0-98.0); Mean Platelet Volume 8.5 fL (7.4-10.4); Platelet Count 316 thou/uL (130-400); RBC Distribution Width 13.3 % (11.5-14.5); Red Blood Cell (RBC) Count 3.97 mill/uL (4.20-5.40); White Blood Cell (WBC) Count 7.5 thou/uL (4.8-10.8)
[2018-05-17 08:54] LABS: Anion Gap 14 mmol/L (10-20); BUN (Urea Nitrogen) 40 mg/dL (9.8-20.1); Calc. Creatinine Clearance 55 mL/min (70-130); Calcium 9.1 mg/dL (7.8-10.44); Carbon Dioxide 22 mmol/L (22-29); Chloride 107 mmol/L (98-107); Estimated GFR-MDRD 24; Glucose 147 mg/dL (70-105); Potassium 3.9 mmol/L (3.5-5.1); Sodium 139 mmol/L (136-145)
[2018-05-17] MEDS ORDERED: Enoxaparin Sodium 30 MG/0.3 ML SYRINGE SC SCH (09:00)
[2018-05-17] MEDS ORDERED: Sodium Chloride 0.9% 500 ML IVPB SCH (09:30)
--- NOTE | 2018-05-17 10:59 | PRG ---
DATE OF SERVICE: 05/17/2018 SUBJECTIVE: Patient was seen and examined at bedside and overnight events noted. Patient denies any shortness of breath or chest pain or palpitation. No history of nausea or vomiting or diarrhea or fever or chills or cramps. OBJECTIVE: GENERAL: This is a morbidly obese female, in no acute distress. VITAL SIGNS: Temperature . Heart rate 67. Respiratory rate . Blood pressure 137/70. HEENT: Atraumatic, normocephalic. Oral mucosa is moist NECK: Supple. CARDIOVASCULAR: S1, S2 heard. Rate and rhythm regular. RESPIRATORY: Clear to auscultation. GASTROINTESTINAL: Abdomen is soft. MUSCULOSKELETAL: No tenderness. No edema. DERMATOLOGIC: No skin rash. NEUROLOGIC: Alert and awake and oriented X3. No focal neurologic deficits. Moving all the extremities. PSYCHIATRIC: Mood and affect normal. LABORATORY DATA: Potassium is 3.9, BUN is 40, creatinine is 2.5. ASSESSMENT AND PLAN: 1. Acute kidney injury on chronic kidney disease, stage 4, stable. 2. Hypertension, blood pressure is stable. 3. Anemia. 4. Obesity. 5. Proteinuria. Blood pressure is stable. Renal function is stable. Job ID: [id number]
--- NOTE | 2018-05-17 17:42 | PDOC.CTH ---
Cardiology Progress Note - Subjective NO more chest pains. No other issues. - Objective Vital Signs Temp Pulse Resp BP Pulse Ox 05/17/18 08:00 98.6 F 67 16 137/70 97 Weight 317 lb 6.4 oz 05/16/18 05/17/18 05/18/18 06:59 06:59 06:59 Intake Total 1030 750 Output Total 1600 300 Balance -570 450 - Physical Examination General/Neuro: alert & oriented x3, NAD Neck: no JVD present Lungs: CTA, unlabored respirations Heart: RRR Abdomen: NT/ND Extremities: other: (no edema) - Telemetry Telemetry Rhythm: NSR - Labs Result Diagrams: 05/17/18 07:54 05/17/18 11:42 Troponin/CKMB CK-MB (CK-2) 2.3 ng/mL (0-6.6) 05/14/18 16:44 Troponin I 0.041 ng/mL (< 0.028) H 05/14/18 16:44 - Assessment/Plan 1. Atypical chest pain, MSK most likely 2. Mild LV dysfunction EF at 44% on MPI normal on echo. 3. Non compliance. 4. HTN 5. CKD stage 4 PLAN - No ischemia on MPI - BP well controlled. - Continue Imdur and other meds. - Creatinine bump likely from over diuresis, will give 500 ml IV bolus and will change her lasix to as needed only. - Follow up in 1 month.
--- NOTE | 2018-05-18 01:41 | DIS ---
DATE OF ADMISSION: 05/17/2018 DATE OF DISCHARGE: 05/17/2018 DISCHARGE DIAGNOSES: 1. Chest pain with negative Cardiolite stress. 2. Uncontrolled hypertension, diabetes, and hyperlipidemia. 3. Chest wall pain. 4. Chronic kidney disease stage 4. 5. History of acute on chronic systolic heart failure. 6. Morbid obesity. 7. Obstructive sleep apnea. DISCHARGE MEDICATIONS: 1. Simvastatin 40 daily. 2. Zoloft 150 daily. 3. Metoprolol 150 p.o. at bedtime. 4. Hydralazine 100 p.o. t.i.d. 5. Glipizide 10 p.o. b.i.d. 6. Lasix 20 q.a.m. 7. Flexeril 10 p.o. t.i.d. p.r.n. 8. Clonidine 0.1 p.o. t.i.d. 9. Aspirin 325 p.o. daily. 10. Insulin 15 units subcu daily. BRIEF HISTORY: This is a 58-year-old black female, morbidly obese with diabetes, hypertension, and hyperlipidemia, who presents with chest pain. The patient has a long history of noncompliance. This patient has been seen by Dr. Marti in the past with a noted ejection fraction of 40% to 45%. Her blood pressure and diabetes have always been uncontrolled. She has had issues with obtaining medications. She has also been followed by Dr. Root. She presents with squeezing like substernal chest pain radiating to her left chest and back. She also began exercising recently and developed some left back soreness. She was seen in the emergency room where her blood pressure was noted to be elevated and her troponin was elevated to 0.048. HOSPITAL COURSE: Dr. Browne and Dr. Marti were consulted. Imdur was added to her regimen. No acute coronary syndrome was noted. Chest wall pain was also confirmed. The patient is doing well at this time. She is well aware that her major issue is obesity. She tries to lose weight, but it has been very unsuccessful. Echocardiogram revealed an ejection fraction of 60% to 65%, moderate concentric left ventricular hypertrophy, grade 1/3 diastolic dysfunction, and mildly dilated left atrium. The patient's creatinine was elevated. Her discharge creatinine is still pending. We will await this result prior to discharge. Her only new medication is Imdur 30 mg daily. LABORATORY DATA: White count 8.4, H and H 11 and 35. Blood sugars 152, 186, and 164. Creatinine 2.51. Awaiting this morning result. Job ID: [id number]
== END 2018-05-17 12:56 | disposition home or self-care (01) | DRG 313 ==
LOC: ERS 10:05 → 2SW 15:48 → OBSVTOIN 05-17 08:51
PROVIDERS: ADMIT Family Medicine; ATTEND Family Medicine
DX: R07.89 Other chest pain (principal); N17.9 Acute kidney failure, unspecified; Z68.43 Body mass index [BMI] 50.0-59.9, adult; I13.0 Hypertensive heart and chronic kidney disease with heart failure and stage 1 through stage 4 chronic kidney disease, or unspecified chronic kidney disease; I50.42 Chronic combined systolic (congestive) and diastolic (congestive) heart failure; N18.4 Chronic kidney disease, stage 4 (severe); E11.22 Type 2 diabetes mellitus with diabetic chronic kidney disease; E11.65 Type 2 diabetes mellitus with hyperglycemia; D63.1 Anemia in chronic kidney disease; E78.00 Pure hypercholesterolemia, unspecified; G47.33 Obstructive sleep apnea (adult) (pediatric); R09.02 Hypoxemia; Z91.19 Patient's noncompliance with other medical treatment and regimen; E66.01 Morbid (severe) obesity due to excess calories; Z87.891 Personal history of nicotine dependence; Z79.82 Long term (current) use of aspirin; Z79.4 Long term (current) use of insulin; Z88.2 Allergy status to sulfonamides
CPT/HCPCS: 36415; 36416; 71045; 78452; 80048; 80053; 80061; 81003; 81015; 82550; 82553; 82565; 83690; 83880; 84484; 85014; 85018; 85025; 85049; 93005; 93017; 93306; 94760; A9500; J1650; J1815

== ENCOUNTER 2019-05-22 10:32 | Outpatient (CLI) | payer OTHER ==
--- NOTE | 2019-06-05 11:01 | MMO ---
Bilateral MAMMO Bilat Screen [facility]DI. CLINICAL HISTORY: Patient is 59 years old and is seen for screening. The patient has no family history of breast cancer. The patient has no personal history of cancer. VIEWS: The views performed were: bilateral craniocaudal and bilateral mediolateral oblique. FILMS COMPARED: The present examination has been compared to prior imaging studies performed at [facility] on 05/30/2005, at [facility] on 02/22/2013 and 02/18/2015, and at [facility] on 05/08/2013. This study has been interpreted with the assistance of computer-aided detection. MAMMOGRAM FINDINGS: The breasts are almost entirely fat. There are stable benign appearing calcifications seen in both breasts. There are no suspicious masses, suspicious calcifications, or new areas of architectural distortion. IMPRESSION: THERE IS NO MAMMOGRAPHIC EVIDENCE OF MALIGNANCY. A ROUTINE FOLLOW-UP MAMMOGRAM IN 1 YEAR IS RECOMMENDED. ACR BI-RADS Category 2 - Benign finding MAMMOGRAPHY NOTE: 1. A negative mammogram report should not delay a biopsy if a dominant of clinically suspicious mass is present. 2. Approximately 10% to 15% of breast cancers are not detected by mammography. 3. Adenosis and dense breasts may obscure an underlying neoplasm. Reported by: FORREST WEI MD Electonically Signed: [id number]
== END 2019-05-22 10:33 | disposition home or self-care (01) ==
LOC: BICMAMMO 10:32
PROVIDERS: ATTEND Family Medicine
DX: Z12.31 Encounter for screening mammogram for malignant neoplasm of breast (principal)
CPT/HCPCS: 77067

== ENCOUNTER 2019-10-10 19:30 | Outpatient (CLI) | payer OTHER | END 2019-10-10 19:31 | disposition home or self-care (01) | LOC: SLEEPLAB 19:30 | PROVIDERS: ATTEND Family Medicine | DX: G47.33 Obstructive sleep apnea (adult) (pediatric) (principal); G47.9 Sleep disorder, unspecified; I13.2 Hypertensive heart and chronic kidney disease with heart failure and with stage 5 chronic kidney disease, or end stage renal disease; E11.22 Type 2 diabetes mellitus with diabetic chronic kidney disease; N18.6 End stage renal disease; I50.9 Heart failure, unspecified; R53.83 Other fatigue; R06.83 Snoring; G47.00 Insomnia, unspecified; G47.10 Hypersomnia, unspecified; I49.9 Cardiac arrhythmia, unspecified; R09.02 Hypoxemia; E66.9 Obesity, unspecified; Z68.43 Body mass index [BMI] 50.0-59.9, adult | CPT/HCPCS: 95810 ==

== ENCOUNTER 2021-05-17 08:56 | Outpatient (CLI) | payer MEDICARE, OTHER | END 2021-05-17 08:57 | disposition home or self-care (01) | LOC: BICMAMMO 08:56 | PROVIDERS: ATTEND Family Medicine | DX: Z12.31 Encounter for screening mammogram for malignant neoplasm of breast (principal) | CPT/HCPCS: 77063; 77067 ==